=== PATIENT | male | born 1950 | race Caucasian/White ===

== ENCOUNTER 2017-10-30 14:19 | Inpatient (IN) | payer OTHER ==
[~2017-10-30] VITALS: Ht 170.2 cm; Wt 123.8 kg
[2017-10-30] MEDS ORDERED: SODIUM CHLORIDE 0.9% 500ML 500 ML IV STA (14:38)
[2017-10-30] MEDS ORDERED: ONDANSETRON INJ 2 MG/ML 2 ML VIAL IV STA ×2 (14:38→16:40)
--- NOTE | 2017-10-30 14:38 | EMERGENCY ROOM VISIT NOTE ---
History Report prepared by Ayush: Dread Baca Under the Supervision of: Dr. Lor Meza D.O. First contact with patient: 14:20 Chief Complaint: CARDIAC ASSESSMENT Stated Complaint: NAUSEA/WEAKNESS History of Present Illness The patient is a 67 year old male who presents to the Emergency Room with complaints of constant nausea beginning this morning. The patient states that he has not felt well for the entire day today due to his nerves. He notes that he went to the [facility] vein clinic and became nauseous as he had an US on his legs done to check blood flow as he has chronic leg wounds that are slow to heal. He reports that he only had Cheerios for breakfast this morning and he states that he has not eaten much since. He also complains of some mild SOB, dizziness, and a bad taste in his mouth. He denies any vomiting, chest pain, fever, chills, cough, and other pain. Per EMS, the patient has been having uncontrolled afib between 90-150. EMS notes that the patient's blood sugar was 288 which is high for the patient. EMS reports that the patient's oxygen saturation has been 94% on room air. EMS states that the patient was given four of Zofran en route to the emergency department. The patient notes that he had black stools five weeks ago. He reports that he had black stools for a week and he states that he is currently having brown stools. He notes that he has not had any alcohol in weeks. He reports that he has a previous history of afib that required cardioversion, as well as a heart murmur. He states that he has had two previous cardiac catheterizations but did not have any stents placed. He notes that he takes Pradaxa and metoprolol. Source of History: patient, EMS Onset: this morning Position: abdomen Quality: other (nausea) Timing: constant Associated Symptoms: + SOB, No fevers, No chills, No cough, No chest pain, No vomiting, No melena Note: The patient also complains of dizziness and a bad taste in his mouth. He denies any other pain. Review of Systems See HPI for pertinent positives & negatives. A total of 10 systems reviewed and were otherwise negative. Past Medical & Surgical Medical Problems: (1) A-fib (2) Afib (3) Murmur Family History No pertinent family history stated. Social History Alcohol Use: none Marital Status: single Occupation Status: employed Current/Historical Medications Scheduled Allopurinol (Zyloprim), 100 MG PO DAILY Bupropion (Wellbutrin Sr), 150 MG PO BID Canagliflozin-Metformin HCl (Invokamet 150-500 mg), 1 TAB PO BID Dabigatran Etexilate Mesylate (Pradaxa), 150 MG PO BID Furosemide (Lasix), 40 MG PO DAILY Gemfibrozil (Lopid), 600 MG PO BID Glimepiride (Glimepiride), 4 MG PO DAILY Hctz/Losartan (Hyzaar 12.5MG/50MG), 1 TAB PO DAILY Levothyroxine Sodium (Levothyroxine Sodium), 50 MCG PO DAILY Magnesium Oxide (Mag-Ox), 400 MG PO BID Metoprolol Tartrate (Lopressor) (Lopressor), 25 MG PO BID Multivitamin (Multivitamin), 1 TAB PO DAILY Sitagliptin Phosphate (Januvia), 100 MG PO DAILY Scheduled PRN Indomethacin (Indocin), 50 MG PO PRN PRN for Pain Allergies Coded Allergies: No Known Allergies (Unverified , 10/30/17) Physical Exam Vital Signs Date Time Temp Pulse Resp B/P (MAP) Pulse Ox O2 Delivery O2 Flow Rate FiO2 10/30/17 17:10 137 10/30/17 17:07 128 20 116/73 94 Room Air 10/30/17 16:34 120 22 124/95 96 Room Air 10/30/17 16:14 113 22 107/79 95 Room Air 10/30/17 15:54 119 119/97 10/30/17 15:52 119 26 119/97 96 Room Air 10/30/17 15:17 104 16 114/76 95 Room Air 10/30/17 14:49 124 121/73 10/30/17 14:32 124 10/30/17 14:26 37.8 124 18 121/73 95 Room Air 10/30/17 14:26 95 Room Air 10/30/17 14:26 95 Room Air Physical Exam GENERAL: alert, well appearing, well nourished, no distress, non-toxic, obese. EYE EXAM: normal conjunctiva, PERRL and EOM's grossly intact OROPHARYNX: no exudate, no erythema, lips, buccal mucosa, and tongue normal and mucous membranes are moist NECK: supple, no nuchal rigidity, no adenopathy, non-tender LUNGS: Clear to auscultation. Normal chest wall mechanics. Breath sounds diminished, no wheezes, rhonchi, and rales. HEART: no murmurs, S1 normal and S2 normal, fast and irregular. ABDOMEN: abdomen soft, non-tender, normo-active bowel sounds, no masses, no rebound or guarding. BACK: Back is symmetrical on inspection and there is no deformity, no midline tenderness, no CVA tenderness. SKIN: no rashes and no bruising UPPER EXTREMITIES: upper extremities are grossly normal. LOWER EXTREMITIES: No pitting edema. NEURO EXAM: Normal sensorium, cranial nerves II-XII grossly intact, normal speech, no gross weakness of arms, no gross weakness of legs. Medical Decision & Procedures ER Provider Diagnostic Interpretation: Radiology results have been interpreted by the radiologist and reviewed by me. ABDOMEN 2VIEW W/PA CHEST RTN FINDINGS: The soft tissues, psoas shadows, renal outlines and intestinal gas pattern appear normal. There is no evidence for bowel obstruction. There is no evidence for free intraperitoneal air. No abnormal abdominal calcifications are seen. A frontal view of the chest was performed and is unremarkable. Mild cardiomegaly. Mild nonobstructive ileus. IMPRESSION: Mild cardiomegaly. Mild nonobstructive ileus. The above report was generated using voice recognition software. It may contain grammatical, syntax or spelling errors. Electronically signed by: Khurram Bonilla M.D. 10/30/2017 3:49 PM Dictated Date/Time: 10/30/2017 3:47 PM [address] AND PELVIS CT WITH IV CONTRAST FINDINGS: Motion degraded exam. Lung bases are generally clear. No pneumatosis or pneumoperitoneum. Imaged inferior cardiac chambers are moderately enlarged. Mitral annular calcifications noted. Prior cholecystectomy. Liver is mildly enlarged. No focal hepatic mass lesions or intrahepatic biliary ductal dilation. The spleen, pancreas and right adrenal gland are unremarkable. 9 mm fatty attenuating lesion about the left adrenal gland compatible with adrenal myolipoma. There are several nonenlarged periaortic lymph nodes which are likely physiologic. Patent portal vein. Moderate calcification of the aorta without aneurysm. IVC is unremarkable. Kidneys, ureters and bladder are unremarkable. Prostate is mildly enlarged. Calcifications of the vas deferens. No bowel obstruction. There are a few nondilated fluid-filled loops of small bowel within the central abdomen with air-fluid levels. There is moderate volume of formed stool throughout the sigmoid. 1.5 cm fatty attenuating focus of the hepatic flexure suggests submucosal lipoma, image 201 series 3. The appendix appears normal within the abdominal right lower quadrant. There is no ascites or mesenteric inflammatory changes identified. Soft tissues are unremarkable. Bones appear intact. Multilevel facet arthropathy with annular disc bulging without the lumbar spine. Grade 1 anterolisthesis L4 on L5, likely secondary to advanced facet arthrosis. IMPRESSION: 1. No bowel obstruction or focal bowel wall thickening. There are however a few loops of nondilated fluid-filled small bowel with air-fluid levels which may be physiologic or reflect ileus or enteritis. 2. Prior cholecystectomy. 3. Cardiomegaly. 4. Additional findings as above. Electronically signed by: Rudy Max M.D. 10/30/2017 5:51 PM Dictated Date/Time: 10/30/2017 5:42 PM Laboratory Results 10/30/17 14:29 Red Blood Count 5.91, Mean Corpuscular Volume 87.5, Mean Corpuscular Hemoglobin 29.9, Mean Corpuscular Hemoglobin Concent 34.2, Mean Platelet Volume 12.6, Neutrophils (%) (Auto) 89.9, Lymphocytes (%) (Auto) 4.0, Monocytes (%) (Auto) 5.1, Eosinophils (%) (Auto) 0.3, Basophils (%) (Auto) 0.2, Neutrophils # (Auto) 15.75, Lymphocytes # (Auto) 0.70, Monocytes # (Auto) 0.90, Eosinophils # (Auto) 0.05, Basophils # (Auto) 0.03 10/30/17 14:29 Test 10/30/17 14:29 10/30/17 17:03 White Blood Count 17.51 K/uL (4.8-10.8) Red Blood Count 5.91 M/uL (4.7-6.1) Hemoglobin 17.7 g/dL (14.0-18.0) Hematocrit 51.7 % (42-52) Mean Corpuscular Volume 87.5 fL (80-100) Mean Corpuscular Hemoglobin 29.9 pg (25-34) Mean Corpuscular Hemoglobin Concent 34.2 g/dl (32-36) Platelet Count 140 K/uL (130-400) Mean Platelet Volume 12.6 fL (7.4-10.4) Neutrophils (%) (Auto) 89.9 % Lymphocytes (%) (Auto) 4.0 % Monocytes (%) (Auto) 5.1 % Eosinophils (%) (Auto) 0.3 % Basophils (%) (Auto) 0.2 % Neutrophils # (Auto) 15.75 K/uL (1.4-6.5) Lymphocytes # (Auto) 0.70 K/uL (1.2-3.4) Monocytes # (Auto) 0.90 K/uL (0.11-0.59) Eosinophils # (Auto) 0.05 K/uL (0-0.5) Basophils # (Auto) 0.03 K/uL (0-0.2) RDW Standard Deviation 49.9 fL (36.4-46.3) RDW Coefficient of Variation 15.8 % (11.5-14.5) Immature Granulocyte % (Auto) 0.5 % Immature Granulocyte # (Auto) 0.08 K/uL (0.00-0.02) Prothrombin Time 14.2 SECONDS (9.0-12.0) Prothromb Time International Ratio 1.4 (0.9-1.1) Anion Gap 12.0 mmol/L (3-11) BUN/Creatinine Ratio 24.1 (10-20) Calcium Level 9.5 mg/dl (8.5-10.1) Magnesium Level 2.1 mg/dl (1.8-2.4) Total Bilirubin 0.9 mg/dl (0.2-1) Aspartate Amino Transf (AST/SGOT) 53 U/L (15-37) Alanine Aminotransferase (ALT/SGPT) 37 U/L (12-78) Alkaline Phosphatase 59 U/L (45-117) Pro-B-Type Natriuretic Peptide 2131 pg/ml (0-900) Total Protein 8.9 gm/dl (6.4-8.2) Albumin 3.9 gm/dl (3.4-5.0) Globulin 5.0 gm/dl (2.5-4.0) Albumin/Globulin Ratio 0.8 (0.9-2) Lipase 341 U/L (73-393) Thyroid Stimulating Hormone (TSH) 0.880 uIu/ml (0.300-4.500) Urine Color YELLOW Urine Appearance CLEAR (CLEAR) Urine pH 5.0 (4.5-7.5) Urine Specific [place] 1.032 (1.000-1.030) Urine Protein 1+ (NEG) Urine Glucose (UA) 3+ (NEG) Urine Ketones NEG (NEG) Urine Occult Blood NEG (NEG) Urine Nitrite NEG (NEG) Urine Bilirubin NEG (NEG) Urine Urobilinogen NEG (NEG) Urine Leukocyte Esterase NEG (NEG) Urine WBC (Auto) 0 /hpf (0-5) Urine RBC (Auto) 0-4 /hpf (0-4) Urine Hyaline Casts (Auto) 0 /lpf (0-5) Urine Epithelial Cells (Auto) 0-5 /lpf (0-5) Urine Bacteria (Auto) NEG (NEG) Laboratory results per my review. Medications Administered Medications (Trade) Dose Ordered Sig/Mamie Route Start Time Stop Time Status Last Admin Dose Admin Sodium Chloride 500 ml @ 999 mls/hr Q31M STAT IV 10/30/17 14:38 10/30/17 15:08 DC 10/30/17 14:51 999 MLS/HR Ondansetron HCl (Zofran Inj) 4 mg NOW STAT IV 10/30/17 14:38 10/30/17 14:40 DC 10/30/17 14:52 4 MG Metoprolol Tartrate (Lopressor Iv) 5 mg NOW STAT IV 10/30/17 14:40 10/30/17 14:41 DC 10/30/17 14:49 5 MG Metoprolol Tartrate (Lopressor Iv) 5 mg NOW STAT IV 10/30/17 15:37 10/30/17 15:38 DC 10/30/17 15:54 5 MG Sodium Chloride 1,000 ml @ 125 mls/hr Q8H STAT IV 10/30/17 16:37 10/30/17 18:22 DC 10/30/17 17:02 125 MLS/HR Ondansetron HCl (Zofran Inj) 4 mg NOW STAT IV 10/30/17 16:40 10/30/17 16:42 DC 10/30/17 17:02 4 MG Diltiazem HCl 125 mg/Dextrose 125 ml @ 0 mls/hr Q0M PRN IV 10/30/17 16:45 10/31/17 11:50 DC 10/31/17 00:32 10 MLS/HR Insulin Human Regular (novoLIN-R U-100 PER UNIT) 6 units NOW STAT SC 10/30/17 16:56 10/30/17 16:57 DC 10/30/17 17:04 6 UNITS ECG Per My Interpretation Indication: nausea Rate (beats per minute): 124 Rhythm: atrial fibrillation Findings: no acute ischemic change, other (Frequent PVCs, normal axis, normal QRS and QTC, Q waves in V2) ED Course 1421: The patient was evaluated in room A3. A complete history and physical exam was performed. 1438: Zofran Inj 4mg IV, Sodium Chloride 500 ml @ 999 mls/hr IV 1440: Metoprolol Tartrate 5mg IV 1511: I reevaluated and updated the patient. His heart rate is slower in the 110s. He states that he has not noticed any significant differences in his symptoms. 1537: Metoprolol Tartrate 5mg IV 1615: I rechecked the patient. He still looks the same and he notes that he does not feel better. His heart rate is the same. 1623: I reviewed records from [place]. Per [place] records, the patient had a cardiac cath in October,. The records also show that the patient had normal coronary arteries, moderate-severe aortic stenosis, mild pulmonary hypertension , and a TTE done at that time. The patient had an LVF of 15-55% and moderate LV wall thickness. 1640: Zofran Inj 4mg IV 1642: I reevaluated and updated the patient. 1656: Insulin Human Regular 6 units SC 1704: Upon reevaluation, the patient is stable. I discussed the findings and the treatment plan with the patient. He expresses agreement and understanding. I spoke with Rachael PAZ of the [facility]. She will be evaluated for further management. Medical Decision Differential diagnosis: Etiologies such as gastroenteritis, food borne illness, infections, appendicitis , diverticulitis, inflammatory bowel disease, obstruction, GI bleed, biliary pathology, as well as others were entertained. Patient with atypical presentation and found to be in rapid A. fib. Patient with prior history of A. fib and takes metoprolol and Pradaxa. Patient denies any recent changes. Denied any recent sick contacts, medication change, or dietary change otherwise explain acute nausea experience today which prompted the call 911 and transportation emergency room. Patient's nausea was slightly improved with Zofran and fluids, did not seem to improve at all with rate control. Patient initially given IV metoprolol given that he uses metoprolol orally daily. This would help with rate control but he would then escalate again. Patient then changed to diltiazem drip. Patient's labs otherwise reassuring. Leukocytosis thought initially to be secondary to stress reaction. Patient never had any abdominal pain, states bowel movements over the last week have been normal. As a precaution given the persistence of nausea patient sent for CAT scan which was also reassuring and only suggestive of possible mild ileus. Patient states his leg wounds are chronic and are slow to heal however have not been getting significantly worse. Denies any fevers or chills. Discussed with patient admission for additional evaluation, better control of his heart rate, and additional medication for his nausea, patient was in agreement with this. Patient aware of all results. Records were obtained from [place] from a cardiac catheterization as well as echo in 2013 which were reviewed and placed on his chart. Case discussed with hospitalist for additional evaluation and management. I do not suspect bacteremia/sepsis, dissection. Prior echo was suggestive of moderate aortic stenosis which I discussed with patient might require a repeat echo for further evaluation as this could contribute to shortness of breath. Patient seemed mildly short of breath here with exertion. No evidence of pneumonia, acute congestive heart failure. Despite elevated troponin I do not suspect ACS. I feel more likely this is secondary to the rapid rate associated with the atrial fibrillation. Patient's EKG reassuring other than atrial fibrillation which is chronic. Medication Reconcilliation Current Medication List: was personally reviewed by me Blood Pressure Screening Patient's blood pressure: Normal blood pressure Blood pressure disposition: Did not require urgent referral Consults Time Called: 1648 Consulting Physician: Rachael PAZ, [facility] Returned Call: 1700 I reviewed the patient's case with Rachael Garcia. She will evaluate the patient for further management. Impression Primary Impression: Atrial fibrillation with rapid ventricular response Additional Impressions: Nausea Ileus Critical Care I have personally spent greater than 45 minutes of critical care time in the direct management of this patient. This includes bedside care, interpretation of diagnostic studies, and testing, discussion with consultants, patient, and family members, and other required patient management activities. This 45 minutes is in excess of all separately billable procedures. Scribe Attestation The scribe's documentation has been prepared under my direction and personally reviewed by me in its entirety. I confirm that the note above accurately reflects all work, treatment, procedures, and medical decision making performed by me. Departure Information Dispostion Being Evaluated By Hospitalist Patient Instructions My [facility] Problem Qualifiers
[2017-10-30] MEDS ORDERED: METOPROLOL TARTRATE 1 MG/ML VIAL IV STA ×2 (14:40→15:37)
[2017-10-30] MEDS ORDERED: CANA1TAB7 PO (15:14)
[2017-10-30] MEDS ORDERED: LEVO50TA6 PO (15:14)
[2017-10-30] MEDS ORDERED: SITA100T3 PO (15:14)
[2017-10-30] MEDS ORDERED: DABI150C PO (15:14)
[2017-10-30] MEDS ORDERED: HYZ/50125 PO (15:14)
[2017-10-30] MEDS ORDERED: MAGN400T6 PO (15:14)
[2017-10-30] MEDS ORDERED: METO25TA56 PO (15:14)
[2017-10-30] MEDS ORDERED: GEMF600T5 PO (15:14)
[2017-10-30] MEDS ORDERED: INDO-24 PO (15:14)
[2017-10-30] MEDS ORDERED: BUPR-79 PO (15:14)
[2017-10-30] MEDS ORDERED: ALLO100T PO (15:14)
[2017-10-30] MEDS ORDERED: FRS/40 PO (15:14)
[2017-10-30] MEDS ORDERED: MULT-506 PO (15:14)
[2017-10-30] MEDS ORDERED: GLIM4TAB2 PO (15:14)
[2017-10-30 15:21] LABS: BASO % 0.2 %; BASO ABS # 0.03 K/uL (0-0.2); EOS % 0.3 %; EOS ABS # 0.05 K/uL (0-0.5); HEMATOCRIT 51.7 % (42-52); HEMOGLOBIN 17.7 g/dL (14.0-18.0); IG# 0.08 K/uL (0.00-0.02); MEAN CELL VOLUME 87.5 fL (80-100); MEAN CORPUSCULAR HEMOGLOBIN 29.9 pg (25-34); MEAN CORPUSCULAR HGB CONC 34.2 g/dl (32-36); MEAN PLATELET VOLUME 12.6 fL (7.4-10.4); MONO % 5.1 %; NEUT % 89.9 %; NEUT ABS # 15.75 K/uL (1.4-6.5); PLATELET COUNT 140 K/uL (130-400); RED CELL DISTRIBUTION WIDTH CV 15.8 % (11.5-14.5); RED CELL DISTRIBUTION WIDTH SD 49.9 fL (36.4-46.3); WHITE BLOOD COUNT 17.51 K/uL (4.8-10.8)
[2017-10-30 15:29] LABS: INR 1.4 (0.9-1.1)
--- NOTE | 2017-10-30 15:50 | DIAGNOSTIC IMAGING REPORT ---
ABDOMEN 2VIEW W/PA CHEST RTN CLINICAL HISTORY: nausea, sob nausea COMPARISON STUDY: No previous studies for comparison. FINDINGS: The soft tissues, psoas shadows, renal outlines and intestinal gas pattern appear normal. There is no evidence for bowel obstruction. There is no evidence for free intraperitoneal air. No abnormal abdominal calcifications are seen. A frontal view of the chest was performed and is unremarkable. Mild cardiomegaly. Mild nonobstructive ileus. IMPRESSION: Mild cardiomegaly. Mild nonobstructive ileus. The above report was generated using voice recognition software. It may contain grammatical, syntax or spelling errors. Electronically signed by: Khurram Bonilla M.D. 10/30/2017 3:49 PM Dictated Date/Time: 10/30/2017 3:47 PM
[2017-10-30 15:52] LABS: ALBUMIN 3.9 gm/dl (3.4-5.0); CALCIUM 9.5 mg/dl (8.5-10.1); CREATININE 1.16 mg/dl (0.60-1.40); POTASSIUM 3.9 mmol/L (3.5-5.1); TOTAL PROTEIN 8.9 gm/dl (6.4-8.2)
[2017-10-30] MEDS ORDERED: DILTIAZEM BOLUS / DRIP IV STA ×2 (16:37→18:26)
[2017-10-30] MEDS ORDERED: SODIUM CHLORIDE 0.9% 1000ML 1,000 ML IV STA (16:37)
[2017-10-30] MEDS ORDERED: NovoLIN-R INSULIN PER UNIT CHARGE SC STA (16:56)
[2017-10-30] MEDS: DILTIAZEM HCL INJ 125 MG in DEXTROSE 5% 100ML IV PRN ×3 (17:07→18:39)
[2017-10-30] MEDS ORDERED: OPTIRAY 320 IV PRN (17:15)
--- NOTE | 2017-10-30 17:52 | DIAGNOSTIC IMAGING REPORT ---
ABDOMEN AND PELVIS CT WITH IV CONTRAST CT DOSE: 1446.92 mGy.cm HISTORY: Acute nausea with ileus nausea, ?ileus on xray TECHNIQUE: Multiaxial CT images of the abdomen and pelvis were performed following the use of intravenous contrast. A dose lowering technique was utilized adhering to the principles of ALARA. COMPARISON STUDY: Acute abdominal series radiographs of same day. FINDINGS: Motion degraded exam. Lung bases are generally clear. No pneumatosis or pneumoperitoneum. Imaged inferior cardiac chambers are moderately enlarged. Mitral annular calcifications noted. Prior cholecystectomy. Liver is mildly enlarged. No focal hepatic mass lesions or intrahepatic biliary ductal dilation. The spleen, pancreas and right adrenal gland are unremarkable. 9 mm fatty attenuating lesion about the left adrenal gland compatible with adrenal myolipoma. There are several nonenlarged periaortic lymph nodes which are likely physiologic. Patent portal vein. Moderate calcification of the aorta without aneurysm. IVC is unremarkable. Kidneys, ureters and bladder are unremarkable. Prostate is mildly enlarged. Calcifications of the vas deferens. No bowel obstruction. There are a few nondilated fluid-filled loops of small bowel within the central abdomen with air-fluid levels. There is moderate volume of formed stool throughout the sigmoid. 1.5 cm fatty attenuating focus of the hepatic flexure suggests submucosal lipoma, image 201 series 3. The appendix appears normal within the abdominal right lower quadrant. There is no ascites or mesenteric inflammatory changes identified. Soft tissues are unremarkable. Bones appear intact. Multilevel facet arthropathy with annular disc bulging without the lumbar spine. Grade 1 anterolisthesis L4 on L5, likely secondary to advanced facet arthrosis. IMPRESSION: 1. No bowel obstruction or focal bowel wall thickening. There are however a few loops of nondilated fluid-filled small bowel with air-fluid levels which may be physiologic or reflect ileus or enteritis. 2. Prior cholecystectomy. 3. Cardiomegaly. 4. Additional findings as above. Electronically signed by: Rudy Max M.D. 10/30/2017 5:51 PM Dictated Date/Time: 10/30/2017 5:42 PM
[2017-10-30 18:27] VITALS: BP 113/70; PULSE 116; TEMP 37.1; BMI 43.7
[2017-10-30] MEDS ORDERED: DEXTROSE 50% 50 ML SYR IV PRN (18:30)
[2017-10-30] MEDS ORDERED: GLUCAGON FOR INJ 1 MG VIAL SQ PRN (18:30)
[2017-10-30] MEDS ORDERED: GLUCOSE 40% GEL 15 GM TUBE PO PRN (18:30)
[2017-10-30] MEDS ORDERED: ONDANSETRON INJ 2 MG/ML 2 ML VIAL IV PRN (18:30)
[2017-10-30] MEDS ORDERED: GLUCOSE 10 TABS/TUBE PO PRN (18:30)
[2017-10-30] MEDS ORDERED: CARBOHYDRATES FOR HYPOGLYCEMIA PO PRN (18:30)
[2017-10-30] MEDS ORDERED: CONSULT PHARMACY STA (19:04)
[2017-10-30] MEDS ORDERED: PHARMACY GLYCEMIC MGMT CONSULT PRN (19:06)
[2017-10-30 19:24] VITALS: BP 120/75; PULSE 112; TEMP 37.4; TEMP 37.5; O2SAT 92
[2017-10-30] MEDS ORDERED: VANCOMYCIN IV 2,500 MG in SODIUM CHLORIDE 0.9% 500ML 500 ML IV ONE (19:30)
[2017-10-30] MEDS ORDERED: D5NSS + 20MEQ KCL 1,000 ML IV SCH (19:30)
[2017-10-30] MEDS ORDERED: PIPERACILL/TAZOBAC IV 4.5 GM in D5W 100 ML IV ONE (19:30)
[2017-10-30] MEDS ORDERED: VANCOMYCIN CONSULT ACTIVE PRN (19:45)
[2017-10-30] MEDS ORDERED: PIPERACILL/TAZOBAC CONSULT ACTIVE PRN (19:45)
--- NOTE | 2017-10-30 19:53 | DIAGNOSTIC IMAGING REPORT ---
L TIBIA/FIBULA 2 VIEWS ROUTINE HISTORY: 67 years-old Male R/O OSTEOMYELITIS acute pain and swelling of the left lower leg COMPARISON: None available TECHNIQUE: 2 views of the left tibia and fibula. FINDINGS: Mild degenerative changes about the knee and ankle. No acute fracture, dislocation or erosive changes. Mild soft tissue swelling about the lower leg and ankle. Extensive peripheral arterial calcifications are noted. IMPRESSION: Soft tissue swelling without acute bony abnormality. The above report was generated using voice recognition software. It may contain grammatical, syntax or spelling errors. Electronically signed by: Rudy Max M.D. 10/30/2017 7:52 PM Dictated Date/Time: 10/30/2017 7:50 PM
--- NOTE | 2017-10-30 20:01 | Pharmacy Progress Note ---
Pharmacy Antibiotic Consult Date of Service: Oct 30, 2017. Pharmacy Dosing Scope Pharmacy is consulted to initiate vancomycin/zosyn IV dosing therapy, order appropriate labs and adjust drug dose/frequency. Subjective The patient is a 67 year old male admitted on Oct 30, 2017 at 17:31. Objective Height (Feet): 5 Height (Inches): 10.00 Weight (Kilograms): 130.500 Lab Results (24hrs): Test 10/30/17 14:29 10/30/17 17:03 10/30/17 19:26 White Blood Count 17.51 K/uL (4.8-10.8) Red Blood Count 5.91 M/uL (4.7-6.1) Hemoglobin 17.7 g/dL (14.0-18.0) Hematocrit 51.7 % (42-52) Mean Corpuscular Volume 87.5 fL (80-100) Mean Corpuscular Hemoglobin 29.9 pg (25-34) Mean Corpuscular Hemoglobin Concent 34.2 g/dl (32-36) Platelet Count 140 K/uL (130-400) Mean Platelet Volume 12.6 fL (7.4-10.4) Neutrophils (%) (Auto) 89.9 % Lymphocytes (%) (Auto) 4.0 % Monocytes (%) (Auto) 5.1 % Eosinophils (%) (Auto) 0.3 % Basophils (%) (Auto) 0.2 % Neutrophils # (Auto) 15.75 K/uL (1.4-6.5) Lymphocytes # (Auto) 0.70 K/uL (1.2-3.4) Monocytes # (Auto) 0.90 K/uL (0.11-0.59) Eosinophils # (Auto) 0.05 K/uL (0-0.5) Basophils # (Auto) 0.03 K/uL (0-0.2) RDW Standard Deviation 49.9 fL (36.4-46.3) RDW Coefficient of Variation 15.8 % (11.5-14.5) Immature Granulocyte % (Auto) 0.5 % Immature Granulocyte # (Auto) 0.08 K/uL (0.00-0.02) Prothrombin Time 14.2 SECONDS (9.0-12.0) Prothromb Time International Ratio 1.4 (0.9-1.1) Sodium Level 130 mmol/L (136-145) Potassium Level 3.9 mmol/L (3.5-5.1) Chloride Level 97 mmol/L (98-107) Carbon Dioxide Level 21 mmol/L (21-32) Anion Gap 12.0 mmol/L (3-11) Blood Urea Nitrogen 28 mg/dl (7-18) Creatinine 1.16 mg/dl (0.60-1.40) Est Creatinine Clear Calc Drug Dose 82.8 ml/min Estimated GFR () 74.6 Estimated GFR (Non- 64.3 BUN/Creatinine Ratio 24.1 (10-20) Random Glucose 226 mg/dl (70-99) Calcium Level 9.5 mg/dl (8.5-10.1) Magnesium Level 2.1 mg/dl (1.8-2.4) Total Bilirubin 0.9 mg/dl (0.2-1) Aspartate Amino Transf (AST/SGOT) 53 U/L (15-37) Alanine Aminotransferase (ALT/SGPT) 37 U/L (12-78) Alkaline Phosphatase 59 U/L (45-117) Troponin I 0.078 ng/ml (0-0.045) Pro-B-Type Natriuretic Peptide 2131 pg/ml (0-900) Total Protein 8.9 gm/dl (6.4-8.2) Albumin 3.9 gm/dl (3.4-5.0) Globulin 5.0 gm/dl (2.5-4.0) Albumin/Globulin Ratio 0.8 (0.9-2) Lipase 341 U/L (73-393) Thyroid Stimulating Hormone (TSH) 0.880 uIu/ml (0.300-4.500) Urine Color YELLOW Urine Appearance CLEAR (CLEAR) Urine pH 5.0 (4.5-7.5) Urine Specific [place] 1.032 (1.000-1.030) Urine Protein 1+ (NEG) Urine Glucose (UA) 3+ (NEG) Urine Ketones NEG (NEG) Urine Occult Blood NEG (NEG) Urine Nitrite NEG (NEG) Urine Bilirubin NEG (NEG) Urine Urobilinogen NEG (NEG) Urine Leukocyte Esterase NEG (NEG) Urine WBC (Auto) 0 /hpf (0-5) Urine RBC (Auto) 0-4 /hpf (0-4) Urine Hyaline Casts (Auto) 0 /lpf (0-5) Urine Epithelial Cells (Auto) 0-5 /lpf (0-5) Urine Bacteria (Auto) NEG (NEG) Micro Results: Date/Time Source Procedure Growth Status 10/30/17 19:26 Blood Blood Culture Pending Received 10/30/17 19:26 Blood Blood Culture Pending Received Assessment & Plan Assessment: 67 yo male admitted with A. Fib w/ RVR Febrile on admission (37.8), WBC elevated (17.8) Starting vancomycin/zosyn for leg cellulitis. Plan: Loading dose: 2500 mg (20 mg/kg) IV X 1 dose then: 1500 mg (12 mg/kg) IV every 12 hours. Population PK: Estimated CrCl 77, T1/2 ~10 hours, Vdf 0.6 Used less than traditional 15 mg/kg, patients BMI >35, risk for accumulation Goal trough level estimate: between 10-20 mcg/mL. Trough ordered for 11/01 @1930 Pharmacy will continue to follow and will adjust dose/frequency as necessary. Thank you
[2017-10-30] MEDS ORDERED: INSULIN GLARGINE SOLOSTAR 100 UNITS/ML 3 ML PEN SC SCH (21:00)
--- NOTE | 2017-10-30 21:37 | DIAGNOSTIC IMAGING REPORT ---
ART DOP LOWER EXT BILAT HISTORY: 67 years-old Male R/O PERIPHERAL VASCULAR DISEASE acute pain of the lower legs with peripheral arterial disease COMPARISON: Left tibia and fibula radiographs of same day TECHNIQUE: Multiple real-time sonographic images of the bilateral lower extremity arterial structures were obtained assessing grayscale appearance, color and spectral flow FINDINGS: RIGHT: Patent triphasic waveforms noted within the common femoral, profunda femoris, superficial femoral and popliteal arteries. Blunted biphasic waveforms within the posterior tibial artery. The mid right peroneal artery is not visualized. Severely blunted monophasic waveforms within the distal peroneal artery. Biphasic waveforms are seen within the anterior tibial and dorsalis pedis artery with areas of blunted monophasic waveforms within the mid and distal anterior tibial artery. No significantly elevated peak systolic velocities. LEFT: Patent triphasic waveforms within the common femoral artery. Blunted monophasic waveforms within the profunda femoris artery. Triphasic waveforms within the superficial femoral and popliteal arteries. Mildly blunted biphasic waveforms within the posterior tibial artery with biphasic waveforms seen within the dorsalis pedis and proximal anterior tibial artery. Monophasic waveforms within the mid and distal anterior tibial artery. Left peroneal artery is not diagnostically visualized. No significantly elevated peak systolic velocities. IMPRESSION: 1. Patent triphasic waveforms are seen within the upper legs bilaterally. 2. Areas of monophasic and biphasic waveforms of the bilateral lower legs as above suggests underlying peripheral arterial disease. 3. No significantly elevated peak systolic velocities identified to suggest high-grade stenosis. 4. Severely blunted monophasic waveforms within the right distal peroneal artery with the mid right peroneal and entire left peroneal artery not diagnostically visualized. The above report was generated using voice recognition software. It may contain grammatical, syntax or spelling errors. Electronically signed by: Rudy Max M.D. 10/30/2017 9:35 PM Dictated Date/Time: 10/30/2017 9:27 PM
[2017-10-30] MEDS: MAGNESIUM OXIDE 400 MG TAB PO SCH (21:39)
[2017-10-30] MEDS: DABIGATRAN ELEXILATE 75 MG CAP PO SCH (21:40)
[2017-10-30] MEDS: BuPROPion SR 150 MG TABCR PO SCH (21:40)
[2017-10-30] MEDS: GEMFIBROZIL 600 MG TAB PO SCH (21:40)
[2017-10-30] MEDS: METOPROLOL TARTRATE 25 MG TAB PO SCH (21:41)
[2017-10-30 21:43] VITALS: BP 110/73; PULSE 102
[2017-10-30 23:35] VITALS: BP 104/71; PULSE 100; TEMP 37.2; O2SAT 93
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
[2017-10-31] MEDS: INSULIN ASPART 100 UNITS/ML 3 ML PEN SC SCH ×3 (00:31→11:52)
[2017-10-31] MEDS: DILTIAZEM HCL INJ 125 MG in DEXTROSE 5% 100ML IV PRN (00:32)
[2017-10-31] MEDS: PIPERACILL/TAZOBAC IV 4.5 GM in D5W 100 ML IV SCH ×2 (02:24→10:22)
[2017-10-31 03:28] LABS: CREATININE 1.22 mg/dl (0.60-1.40)
[2017-10-31 03:35] VITALS: BP 111/68; PULSE 92; TEMP 37.1; O2SAT 94
[2017-10-31] MEDS: LEVOTHYROXINE 50 MCG TAB PO SCH (05:52)
[2017-10-31] MEDS ORDERED: VANCOMYCIN IV 1,500 MG in SODIUM CHLORIDE 0.9% 500ML 500 ML IV SCH (06:00)
[2017-10-31 06:55] LABS: HEMOGLOBIN A1C 8.9 % (4.5-5.6)
[2017-10-31] MEDS ORDERED: PERFLUTREN LIPID MICROSPHERE (DEFINITY) IV ONE (07:23)
[2017-10-31] MEDS: GEMFIBROZIL 600 MG TAB PO SCH ×2 (08:20→20:12)
[2017-10-31] MEDS: BuPROPion SR 150 MG TABCR PO SCH ×2 (08:20→20:11)
[2017-10-31] MEDS: ALLOPURINOL 100 MG TAB PO SCH (08:20)
[2017-10-31] MEDS: DABIGATRAN ELEXILATE 75 MG CAP PO SCH ×2 (08:21→20:10)
[2017-10-31] MEDS: MAGNESIUM OXIDE 400 MG TAB PO SCH ×2 (08:21→20:11)
[2017-10-31] MEDS: METOPROLOL TARTRATE 25 MG TAB PO SCH ×2 (08:21→20:11)
--- NOTE | 2017-10-31 08:58 | ECHOCARDIOGRAM REPORT ---
*NOTICE TO RECEIVING [employer] AGENCY This information is strictly Confidential and protected under [place] law. [place] law prohibits you from making any further disclosure of this information unless further disclosure is expressly permitted by the written consent of the person to whom it pertains or is authorized by law. A general authorization for the release of medical or other information is not sufficient for this purpose. Hospital accepts no responsibility if the information is made available to any other person, INCLUDING THE PATIENT. Interpretation Summary * Name: STANLEY LI Study Date: 10/31/2017 06:41 AM BP: 111/68 mmHg * Patient Location: S230 HR: 82 * : 1950 (M/d/yyyy) Gender: Male Height: 70 in * Age: 67 yrs Ethnicity: [place] Weight: 275 lb * Ordering Physician: Aung Gambino * Referring Physician: Self, Referred * Performed By: Madison Spicer RCS * * Reason For Study: A-FIB WITH RVR * BSA: 2.4 m2 * -- Conclusions -- * The study was technically adequate for the referral indication. * Atrial fibrillation with controlled ventricular rate in the range of 85-90 bpm was present during the echocardiogram. * There is moderate concentric left ventricular hypertrophy. * There is borderline global hypokinesis of the left ventricle. * Left ventricular systolic function is low normal. * The left ventricular ejection Fraction = 50-55%. * Right ventricular chamber size and systolic function are grossly normal on technically limited imaging. * The aortic valve is severely calcified. * Images are insufficient to distinguish if this is a trileaflet aortic valve or bicuspid morphology, * Critically severe aortic valve stenosis is present. * The peak continuous wave Doppler velocity across aortic valve is 5 m/s. * The mean calculated gradient across aortic valve is 53 mmHg. * The aortic valve area is calculated by the continuity equation is 0.4 cm2 * Trace aortic regurgitation. * There is mild mitral annular calcification. * There is mild mitral regurgitation. * Doppler findings do not suggest pulmonary hypertension. * Aortic root diameter is normal. * The proximal ascending thoracic aorta is not visualized well enough to allow measurement. Procedure Details * A complete two-dimensional transthoracic echocardiogram was performed (2D, M-mode, Doppler and color flow Doppler). * The study was technically difficult. * There were technical limitations due to patient'spoor positioning * A contrast injection of Definity was performed to improve assessment of LV function. * Contrast was injected into an intravenous site in the right arm. * One vial of Definity ultrasound contrast was diluted in normal saline to a total volume of 10 ml. A total of '2' ml of solution was administered during imaging. * Lot # [id number] of Definity utilized for procedure. * Expiration date OCT 18. * The attending nurse who injected the contrast agent was GIDEON ELAM, RN. Left Ventricle * The left ventricle is normal in size. * There is moderate concentric left ventricular hypertrophy. * Left ventricular systolic function is low normal. * Ejection Fraction = 50-55%. * There is borderline global hypokinesis of the left ventricle. Right Ventricle * Right ventricular chamber size and systolic function are grossly normal on technically limited imaging. Atria * The left atrium is severely dilated. * Right atrial size is normal. * There is no evidence of atrial septal defect, but resolution does not allow assessment for a patent foramen ovale. Mitral Valve * There is mild mitral annular calcification. * There is no mitral valve stenosis. * There is mild mitral regurgitation. Tricuspid Valve * The tricuspid valve is normal. * There is no tricuspid stenosis. * Significant tricuspid regurgitation is absent. * Doppler findings do not suggest pulmonary hypertension. Aortic Valve * The aortic valve is severely calcified. Images are insufficient to distinguish if this is a trileaflet aortic valve or bicuspid morphology, * Critically severe aortic valve stenosis is present. * Trace aortic regurgitation. Pulmonic Valve * The pulmonary valve is not well seen, but the Doppler examination is normal without significant regurgitation or stenosis. Great Vessels * Aortic root diameter is normal. The proximal ascending thoracic aorta is not visualized well enough to allow measurement. Pericardium/Pleural * There is no pericardial effusion. Great Vessels * Normal inferior vena cava diameter and respiratory variation suggests normal central venous pressure. MMode 2D Measurements and Calculations IVSd 1.7 cm IVSs 1.8 cm LVIDd 4.5 cm LVIDs 4.1 cm LVPWd 1.9 cm LVPWs 2.2 cm IVS/LVPW 0.91 FS 9.9 % EDV(Teich) 94.2 ml ESV(Teich) 73.7 ml EF(Teich) 21.7 % EDV(cubed) 93.3 ml ESV(cubed) 68.3 ml EF(cubed) 26.8 % % IVS thick 2.1 % % LVPW thick 15.8 % LV mass(C)d 379.2 grams LV mass(C)dI 158.7 grams/m\S\2 LV mass(C)s 381.9 grams LV mass(C)sI 159.8 grams/m\S\2 SV(Teich) 20.5 ml SI(Teich) 8.6 ml/m\S\2 SV(cubed) 25.0 ml SI(cubed) 10.5 ml/m\S\2 Ao root diam 2.9 cm Ao root area 6.8 cm\S\2 LA dimension 4.9 cm LA/Ao 1.7 LVOT diam 2.0 cm LVOT area 3.3 cm\S\2 LVAd ap4 44.4 cm\S\2 LVLd ap4 9.4 cm EDV(MOD-sp4) 168.6 ml EDV(sp4-el) 177.9 ml LVAs ap4 36.3 cm\S\2 LVLs ap4 8.5 cm ESV(MOD-sp4) 128.1 ml ESV(sp4-el) 131.9 ml EF(MOD-sp4) 24.0 % EF(sp4-el) 25.8 % LVAd ap2 39.9 cm\S\2 LVLd ap2 9.0 cm EDV(MOD-sp2) 145.0 ml EDV(sp2-el) 150.4 ml LVAs ap2 30.2 cm\S\2 LVLs ap2 8.4 cm ESV(MOD-sp2) 89.2 ml ESV(sp2-el) 92.2 ml EF(MOD-sp2) 38.4 % EF(sp2-el) 38.7 % LVLd %diff -4.44 % EDV(MOD-bp) 158.9 ml LVLs %diff -0.84 % ESV(MOD-bp) 107.0 ml EF(MOD-bp) 32.7 % SV(MOD-sp4) 40.4 ml SI(MOD-sp4) 16.9 ml/m\S\2 SV(MOD-sp2) 55.7 ml SI(MOD-sp2) 23.3 ml/m\S\2 SV(MOD-bp) 51.9 ml SI(MOD-bp) 21.7 ml/m\S\2 SV(sp4-el) 45.9 ml SI(sp4-el) 19.2 ml/m\S\2 SV(sp2-el) 58.2 ml SI(sp2-el) 24.4 ml/m\S\2 Doppler Measurements and Calculations MV E max jose g 126.0 cm/sec MV P1/2t max jose g 145.5 cm/sec MV P1/2t 83.9 msec MVA(P1/2t) 2.6 cm\S\2 MV dec slope 507.7 cm/sec\S\2 MV dec time 0.25 sec Ao V2 max 494.1 cm/sec Ao max PG 97.8 mmHg Ao max PG (full) 96.3 mmHg Ao V2 mean 417.3 cm/sec Ao mean PG 75.1 mmHg Ao mean PG (full) 74.3 mmHg Ao V2 VTI 127.5 cm JUANY(I,A) 0.31 cm\S\2 JUANY(I,D) 0.31 cm\S\2 JUANY(V,A) 0.39 cm\S\2 JUANY(V,D) 0.39 cm\S\2 LV V1 max PG 1.4 mmHg LV V1 mean PG 0.82 mmHg LV V1 max 59.4 cm/sec LV V1 mean 42.7 cm/sec LV V1 VTI 12.3 cm SV(Ao) 861.3 ml SI(Ao) 360.4 ml/m\S\2 SV(LVOT) 40.1 ml SI(LVOT) 16.8 ml/m\S\2
[2017-10-31 09:02] VITALS: BP 106/66; PULSE 83; TEMP 37; O2SAT 96
[2017-10-31] MEDS ORDERED: SODIUM CHLORIDE 0.9% 1000ML 1,000 ML IV SCH (09:45)
--- NOTE | 2017-10-31 10:54 | Pharmacy Progress Note ---
Glycemic Control Intl Consult Date of Service Oct 31, 2017. Scope Glycemic Pharmacist consulted by Dr Gambino on 10/30/17 for glycemic control and to write orders per [facility] inpatient glycemic control protocol Objective Weight (Kilograms): 122.500 Accuchecks BSG (last 24hrs): Test 10/30/17 14:29 10/30/17 21:29 10/31/17 00:17 10/31/17 06:07 Random Glucose 226 mg/dl (70-99) Bedside Glucose 179 mg/dl (70-99) 196 mg/dl (70-99) 325 mg/dl (70-99) Laboratory Data (last 24hrs) Test 10/30/17 14:29 10/30/17 19:26 10/31/17 02:34 Anion Gap 12.0 mmol/L BUN/Creatinine Ratio 24.1 Blood Urea Nitrogen 28 mg/dl Creatinine 1.16 mg/dl 1.22 mg/dl Potassium Level 3.9 mmol/L Sodium Level 130 mmol/L 130 mmol/L 133 mmol/L White Blood Count 17.51 K/uL Red Blood Count 5.91 M/uL Hemoglobin 17.7 g/dL Hematocrit 51.7 % Mean Corpuscular Volume 87.5 fL Mean Corpuscular Hemoglobin 29.9 pg Mean Corpuscular Hemoglobin Concent 34.2 g/dl Platelet Count 140 K/uL Mean Platelet Volume 12.6 fL Neutrophils (%) (Auto) 89.9 % Lymphocytes (%) (Auto) 4.0 % Monocytes (%) (Auto) 5.1 % Eosinophils (%) (Auto) 0.3 % Basophils (%) (Auto) 0.2 % Neutrophils # (Auto) 15.75 K/uL Lymphocytes # (Auto) 0.70 K/uL Monocytes # (Auto) 0.90 K/uL Eosinophils # (Auto) 0.05 K/uL Basophils # (Auto) 0.03 K/uL Hemoglobin A1c 8.9 % HbA1c Test 10/31/17 02:34 Hemoglobin A1c 8.9 % (4.5-5.6) H Recent Pertinent Medications Outpatient Anti-diabetic Regimen: * Invokamet 150/500 mg BID * Glimepiride 4 mg daily * Sitagliptin 100 mg daily The patient is currently receiving: * Basal insulin: Lantus 25 units x 1 last night * Correctional Insulin: Novolog Correction per scale ACHS Goal Range: Low 110 mg/dL - High 150 mg/dL Correction Factor: 25 mg/dL/unit * Prandial insulin: Per carb ratio of 1 unit per 10 grams CHO consumed * Oral Agents: None at this time Risk Factors for Insulin Resistance/Sensitivity: * Infection: L leg cellulitis, r/o osteo * IVF: D5NS + 20 K @ 60 cc/hr -> just switched to NS * Diet: NPO Assessment & Plan ASSESSMENT: * Mr. Best is a 67 y/o male admitted with A fib w/ RVR. He has type 2 diabetes that is not well controlled as per the A1c. * BSGs were just slightly above goal last night but up to 325 mg/dL this AM - suspect this is maybe in part due to the dextrose IVFs, which are now stopped. Will still need basal/bolus insulin due to requiring 3+ oral agents as an outpatient. * Pt is maintained on oral antidiabetic agents as an outpatient * Oral agents are not recommended for inpatient use d/t drug interactions, changing PO intake, and difficulty titrating for acute hyper/hypoglycemia. ADA recommends re-initiating outpatient oral agents 1-2 days prior to discharge if/ when appropriate if they were held on admission. * Will hold oral agents for admission and utilize SQ basal bolus insulin regimen which is the recommended regimen for inpatient glycemic control. * Will initiate weight based insulin dosing for insulin ade patient and titrate based on BSG trends. PLAN FOR INPATIENT GLYCEMIC CONTROL: * Continue to hold outpatient oral diabetes medications * Basal insulin with LANTUS SQ BID as per the following scale: * 12 units for BSG less than 150 * 22 units for BSG 150 or above * NOVOLOG per scale ACHS - tighten parameters * Goal Range: Low 110 mg/dL - High 150 mg/dL * Correction Factor: 20 mg/dL/unit * Nutritional / Prandial insulin per carb ratio of 1 unit per 8 grams CHO consumed Discharge Recommendations: * Patient on 3+ oral agents without A1c at goal * If tolerated, Invokamet dose could be increased (max is 150 mg/1000 mg BID). Another option would be to add a once daily dose of basal insulin. * Further recommendations will be provided closer to discharge Thank you.
--- NOTE | 2017-10-31 11:49 | Cardiology Consultation ---
Cardiology Consultation Date of Consultation: Oct 31, 2017 History of Present Illness Sagar Best a 67 year old male seen in cardiology consultation per the request of Dr. Gambino for the evaluation of atrial fibrillation and aortic valve stenosis. This is the patient's first encounter at our facility. He is apparently been seen in the past by cardiology at [facility] but he describes that he does not follow routinely with cardiology. The patient describes over the last few weeks he has had progressive worsening bilateral lower extremity swelling with associated worsening ulcerations of his left lower leg. He had seen his primary care provider, Dr. Moreland on 10/21/17 describes being placed on furosemide 40 mg daily in addition to his losartan/ hydrochlorothiazide with interval loss of 6 pounds and mild improvement in his bilateral lower extremity edema. He has been counseled that he has a problem with the circulation in his lower legs he states specifically his left peroneal artery. He describes having had a past ultrasound in [place] and it sounds that about a week ago, he had a CT scan or an MRI performed at [place]. It is not certain what the imaging study was for her which modality was utilized. He does however describe having "difficulty with the contrast ". Yesterday he states that he was in [place] at [facility] for further evaluation of his leg circulation. As he was leaving after his appointment there he developed abrupt onset of nausea and describes nearly passing out. He describes that his symptoms came on suddenly having felt well earlier that day. The staff at the vein clinic became concerned and called EMS. Patient was found to have atrial fibrillation with rapid ventricular response, 124 bpm on his initial EKG as well as several PVCs. EKG performed on arrival to the emergency room yesterday also revealed an age-indeterminate septal infarction pattern and age-indeterminate lateral infarction pattern with poor R-wave progression in the precordial leads V1 to V5 with associated J-point elevation. The patient was placed on a diltiazem infusion which is since been discontinued telemetry reveals current atrial fibrillation in the range of 85- 90 bpm. The patient is sitting in bed and feeling well without any chest discomfort, shortness of breath, and otherwise feels well without acute complaint at rest at present. Due to his chief complaint of nauseousness and CT of the abdomen and pelvis had been performed which revealed a few loops of nondilated fluid- filled small bowel perhaps reflective of an ileus or enteritis. History Past Medical History: 1. Long-standing history of type 2 diabetes mellitus 2. Hypertension 3. Dyslipidemia 4. Atrial fibrillation the patient describes being seen by cardiology at [place] for AF many years ago. He describes having had attempted cardioversion 2, and per his recollection it sounds as though he is in a chronic rate controlled atrial fibrillation rate atrial fibrillation in the mid 80 B per minute range as documented on an outside EKG performed in [place] in October, 5. Moderate to severe aortic valve stenosis on echocardiogram, [place], October 2013 (progressed to critically severe aortic valve stenosis as of echocardiogram performed at the [facility] 10/31/17 as described below) 6. Normal coronary arteries by cardiac catheterization [place] October, Past Surgical History: Unavailable Social History: Patient is single, lives alone, is a former smoker. Family History: Noncontributory Review Of Systems A 10 point review of systems is reviewed and is negative with the exception of that above Allergies Coded Allergies: No Known Allergies (Unverified , 10/30/17) Medications Reported Home Medications Medications Dose Route/Sig Max Daily Dose Days Date Category Dose Instructions Lasix (Furosemide) 40 Mg Tab 40 Mg PO DAILY 10/30/17 Reported Mag-Ox (Magnesium Oxide) 400 Mg Tab 400 Mg PO BID 10/30/17 Reported Glimepiride 4 Mg Tab 4 Mg PO DAILY 10/30/17 Reported Multivitamin (Multivitamins) Tab 1 Tab PO DAILY 10/30/17 Reported Invokamet 150-500 mg (Canagliflozin-Metformin HCl) 1 Tab Tab 1 Tab PO BID 10/30/17 Reported Indocin (Indomethacin) 50 Mg Cap 50 Mg PO PRN PRN 10/30/17 Reported WITH FOOD UNTIL PAIN RESOLVES Zyloprim (Allopurinol) 100 Mg Tab 100 Mg PO DAILY 10/30/17 Reported Pradaxa (Dabigatran Etexilate Mesylate) 150 Mg Cap 150 Mg PO BID 10/30/17 Reported Hyzaar 12.5MG/50MG (HCTZ/Losartan Potassium) Tab 1 Tab PO DAILY 10/30/17 Reported Levothyroxine Sodium 50 Mcg Tab 50 Mcg PO DAILY 90 10/30/17 Reported Lopressor (Metoprolol Tartrate) 25 Mg Tab 25 Mg PO BID 10/30/17 Reported Wellbutrin Sr (Bupropion HCl) 150 Mg Ertab 150 Mg PO BID 10/30/17 Reported Januvia (Sitagliptin Phosphate) 100 Mg Tab 100 Mg PO DAILY 10/30/17 Reported Lopid (Gemfibrozil) 600 Mg Tab 600 Mg PO BID 10/30/17 Reported Physical Exam Vital Signs (Last 8hrs): Last 8 Hrs Date Time Temp Pulse Resp B/P (MAP) Pulse Ox O2 Delivery O2 Flow Rate FiO2 10/31/17 09:02 37.0 83 16 106/66 (79) 96 Room Air 10/31/17 08:00 Room Air 10/31/17 03:35 37.1 92 20 111/68 (82) 94 Room Air General Appearance: Alert and Oriented x3. NAD. Head: Normocephalic Atraumatic. Eyes: PERRLA, EOMI, conjunctiva and sclera clear Neck: Supple. No carotid bruits noted. No JVD. No HJD. Respiratory: Breath sounds clear to auscultation bilaterally. No w/r/r. Cardiovascular: Reg rate and rhythm. S1 and S2 noted. No murmurs, rubs, gallops. PMI non displace. Abdomen: Normal bowel sounds, soft nontender. no abdominal bruits. Extremities: No edema, no clubbing or cyanosis. distal pulses 2/4 bilaterally. Neuro: No focal deficits. Psychiatric: Normal affect. Data Last Resulted 10/30/17 14:29 Red Blood Count 5.91, Mean Corpuscular Volume 87.5, Mean Corpuscular Hemoglobin 29.9, Mean Corpuscular Hemoglobin Concent 34.2, Mean Platelet Volume 12.6, Neutrophils (%) (Auto) 89.9, Lymphocytes (%) (Auto) 4.0, Monocytes (%) (Auto) 5.1, Eosinophils (%) (Auto) 0.3, Basophils (%) (Auto) 0.2, Neutrophils # (Auto) 15.75, Lymphocytes # (Auto) 0.70, Monocytes # (Auto) 0.90, Eosinophils # (Auto) 0.05, Basophils # (Auto) 0.03 Last Resulted 10/30/17 14:29 10/31/17 02:34 Past 24 Hours Test 10/30/17 14:29 10/30/17 19:26 10/31/17 02:34 Range/Units Prothromb Time International Ratio 1.4 H 0.9-1.1 Prothrombin Time 14.2 H 9.0-12.0 SECONDS Troponin I 0.078 *H 0.089 *H 0.099 *H 0-0.045 ng/ml EKG on arrival as outlined above, repeat on 10/30/17 at 1836 revealed atrial fibrillation 118 bpm with poor R-wave progression noted throughout the anterior precordial leads suggestive age-indeterminate anterolateral infarction. Transthoracic echocardiogram performed today 10/31/17 reviewed independently by the undersigned: Atrial fibrillation with controlled ventricular rate in the range of 85-90 bpm was present during echocardiogram Moderate concentric left ventricular hypertrophy is present. There is borderline global left ventricular hypokinesis present, left ventricular ejection fraction 50-55%. Aortic valve is severely calcified. The images are insufficient to distinguish at this is a trileaflet aortic valve or bicuspid morphology Critically severe aortic valve stenosis is present, the peak continues with Doppler velocity across aortic valve is 5 m/s, the mean calculated gradient across aortic valve 53 mmHg, the calculated aortic valve area is 0.4 cm. Trace aortic valve regurgitation is present. Mild mitral regurgitation is present. Doppler findings do not suggest pulmonary hypertension Aortic root diameter is normal, the proximal ascending thoracic aorta is not visualized well enough to allow measurement. Bilateral lower extremity ultrasound: Per summary radiology report, suggestion of distal peripheral arterial disease bilateral peroneal artery disease suggested Assessment & Plan Impression: 67-year-old male 1. Patient presented with transient nauseousness, apparent near syncope, has been found with perhaps a mild ileus, also was noted to have atrial fibrillation with rapid ventricular response 2. Apparent chronic typically rate controlled atrial fibrillation, diltiazem infusion has been weaned, and currently he is rate controlled back to his typical baseline per available information. Per patient description it sounds as though he is in chronic atrial fibrillation with rate control including metoprolol tartrate 25 mg twice daily and anticoagulation with Pradaxa 150 mg twice daily 3. Newly diagnosed critically severe aortic valve stenosis, low normal LVEF 4. History of cardiac catheterization performed in [place] in 2013 for diagnosis of chest pain, report describes normal coronary arteries, moderate aortic valve stenosis at that time 5. Type 2 diabetes mellitus, with recent lower leg edema, left lower extremity ulcers, bilateral distal lower extremity peripheral arterial disease, peroneal arteries 6. Recent CT versus MRI performed in [place] approximately a week ago, details unknown at present, patient describes having had a "problem "with contrast, details unknown Discussion/recommendations: I contact the patient's primary care provider's office to facilitate getting the report of the study that he had last week. My hope is that someone can read the report to me to determine what study was performed, with the findings were, and what kind of contrast and will kind of reaction may have taken place which of course would be helpful in his current management. In terms of his atrial fibrillation. Although his troponin is mildly elevated, I think this is consistent with him having had severe aortic valve stenosis in the setting of tachycardia, and is not reimbursement representative of an acute coronary syndrome. His findings of an age-indeterminate anterolateral infarction. We will transition him back to his home dose of metoprolol. Continue to hold his diet for possible ileus for now. He is on IV antibiotics with Zosyn, and I would caution that we need to be very cautious with his IV fluid intake given his critically severe aortic valve stenosis. He is currently on vancomycin and Zosyn. My impression, is that we need to address his lower extremity circulation, perhaps a consultation with endovascular medicine this admission. We need to optimize his lower extremity ulcerations and promote healing perhaps with endovascular revascularization as he is not a candidate for open revascularization at present. Recommend that his ulcers need to be optimized before proceeding with future cardiac catheterization and workup toward a surgical aortic valve replacement. I think her goal for this hospital stay is to optimize his nauseousness, perhaps address his lower extremity arterial insufficiency, and preparation for further outpatient aortic valve workup. He will need a repeat cardiac catheterization to exclude coronary artery disease prior to CT surgery consultation as an outpatient. Patient stated that he was interested in pursuing aortic valve replacement at [facility].
[2017-10-31] MEDS: INSULIN GLARGINE SOLOSTAR 100 UNITS/ML 3 ML PEN SC SCH ×2 (11:53→20:22)
[2017-10-31 12:01] VITALS: BP 84/49; PULSE 86; TEMP 37.1; O2SAT 97
[2017-10-31 12:26] VITALS: Ht 170.2 cm; Wt 123.8 kg
--- NOTE | 2017-10-31 12:31 | Cardiology Progress Note ---
Cardiology Progress Note Date of Service Oct 31, 2017. Cardiology Progress Note I spoke to patient's PCP , Dr Moreland by phone. She was able to read to me the report of an MRA performed last week in [place]. The MRA revealed suggestion of severe left peroneal artery occlusion, perhaps some degree of right peroneal artery disease also, no other significant obstruction. In addition, the patient has had difficult to control diabetes. Most recent hemoglobin A1c had been 8%. He declined insulin in the past, and his medications have been limited by financial limitations. I updated Dr. Moreland about the patient's workup at [facility] thus far.
--- NOTE | 2017-10-31 13:23 | DIAGNOSTIC IMAGING REPORT ---
KUB HISTORY: Acute ileus with abdominal distention. ileus, ff up COMPARISON: CT abdomen and pelvis and acute abdominal series radiographs 10/30/2017 FINDINGS: The bowel gas pattern is non-obstructive. Air is seen within a normal caliber colon. Cholecystectomy clips are noted. Vascular calcifications of the pelvis. There is no organomegaly. No renal calculi. No ureteral calculi. No pneumoperitoneum or pneumatosis. No fracture. IMPRESSION: Nonobstructive bowel gas pattern without pneumoperitoneum. Electronically signed by: Rudy Max M.D. 10/31/2017 1:22 PM Dictated Date/Time: 10/31/2017 1:20 PM
[2017-10-31] MEDS: DOXYCYCLINE HYCLATE 100 MG CAP PO SCH ×2 (14:22→20:10)
--- NOTE | 2017-10-31 15:10 | Progress Note ---
Progress Note Date of Service Oct 31, 2017. Progress Note ID Consult Dictated #[id number] A/P: 1. LE ulcers -Continue doxy for now, await blood cultures, suspect vascular cause -Thank you
--- NOTE | 2017-10-31 15:31 | INFECT. DISEASE CONSULTATION ---
DATE OF CONSULTATION: 10/31/2017 HISTORY OF PRESENT ILLNESS: This is a 67-year-old gentleman who was admitted from a diagnostic center after he was found to be in AFib with rapid ventricular response. He was having outpatient arterial ultrasounds done on his lower extremities to rule out peripheral arterial disease secondary to chronic bilateral leg wounds and he developed nausea. He then was found to be in AFib and sent to the hospital. He was started on a Cardizem drip and is being followed by cardiology. He states that he has had prolonged ulcerations of his lower extremity. He has had no definitive treatment for this. He recently completed a 10-day course of unknown antibiotics from his primary physician for suspected cellulitis. He did not notice an appreciable difference in his ulcerations. He states that the ulcerations are chronic. They are not draining. He does admit to chronic discoloration of his lower extremities. He states that his legs are feeling better today, but he attributes this to being flat in bed and not up and ambulating on his lower extremities. He does admit to chronic lower extremity edema as well. He denies any fevers or chills. He was initially given vancomycin and Zosyn and then changed to oral doxycycline. Infectious diseases was asked to see the patient in consultation for transition to oral antibiotics. He has been afebrile and hemodynamically stable since admission to the hospital. He denies any chest pain, cough, shortness of breath, nausea, vomiting, or diarrhea. REVIEW OF SYSTEMS: His remaining review of systems is reviewed and unremarkable. PAST MEDICAL HISTORY: Significant for AFib, type 2 diabetes, moderate aortic stenosis, hypertension. PAST SURGICAL HISTORY: Unremarkable. SOCIAL HISTORY: Significant for history of tobacco use. He denies any alcohol or drug use. FAMILY HISTORY: Noncontributory. ALLERGIES: There are no known drug allergies. MEDICATIONS: Doxycycline, Lantus, allopurinol, Synthroid, Wellbutrin, Pradaxa, gemfibrozil, magnesium, Lopressor, Zofran, Tylenol. PHYSICAL EXAMINATION: VITAL SIGNS: He is afebrile, pulse 86, respiratory rate 16, blood pressure 106/66, oxygen saturation is 96% on room air. GENERAL: He is awake, alert and oriented x3. He is in no acute distress. HEENT: Mucous membranes are moist. Extraocular muscles are intact. HEART: Without murmur. LUNGS: Clear bilaterally. ABDOMEN: Soft, nondistended. There is no edema bilaterally. There is chronic superficial ulcerations bilaterally. There is no purulent drainage or bleeding. There is no warmth or tenderness. There is chronic discoloration. LABORATORY STUDIES: CBC: White blood cell count yesterday 17.5, hemoglobin 17.7, platelets 140. Chemistry panel: Sodium 133, potassium 3.9, chloride 97, bicarbonate 21, BUN 28, creatinine 1.1, glucose has been between 150 and 325. LFTs are within normal limits. UA was negative. Blood cultures are pending. Lower extremity ultrasounds showed high-grade stenosis. ASSESSMENT AND PLAN: Lower extremity ulcerations. I suspect that these are related more to vascular issue rather than infectious. He is currently on doxycycline and can continue this pending blood culture results. We will follow along with you. Thank you for this consultation.
[2017-10-31 15:39] VITALS: BP 104/69; PULSE 78; TEMP 36.9; O2SAT 96
[2017-10-31] MEDS ORDERED: NURSING VERBAL MED ORDER ONE (17:00)
[2017-10-31] MEDS: INSULIN ASPART 100 UNITS/ML 3 ML PEN SQ SCH ×2 (17:15→20:20)
--- NOTE | 2017-10-31 18:30 | Progress Note ---
Subjective Date of Service: Oct 31, 2017. Subjective Pt evaluation today including: conversation w/ patient, physical exam, lab review, review of studies, review of inpatient medication list Saw/examined the patient in room 230-2 He is doing better today Has LLE pain, warmth to touch, erythema States he has some shortness of breath, dyspnea with exertion and at times at rest Denies chest pain/palpitations Denies abdominal pain Problem List Medical Problems: (1) Atrial fibrillation with rapid ventricular response Status: Acute (2) Ileus Status: Acute (3) Nausea Status: Acute Review of Systems Constitutional: No fever, No chills Respiratory: + shortness of breath, + dyspnea on exertion, + dyspnea at rest, No cough, No sputum, No wheezing, No hemoptysis Cardiac: + edema, No chest pain, No palpitations Abdomen: No pain, No nausea, No vomiting, No diarrhea, No constipation, No GI bleeding Psychiatric: No depression symptoms, No anxiety, No insomnia Skin: + new/changing skin lesions Medications Current Inpatient Medications Medications (Trade) Dose Ordered Sig/Mamie Route Start Time Stop Time Status Last Admin Dose Admin Ioversol (Optiray 320) 125 ml UD PRN IV 10/30/17 17:15 11/03/17 17:14 Acetaminophen (Tylenol Tab) 650 mg Q4H PRN PO 10/30/17 18:30 11/29/17 18:29 Ondansetron HCl (Zofran Inj) 4 mg Q6H PRN IV 10/30/17 18:30 11/29/17 18:29 Miscellaneous Information (Consult Glycemic Management Pharmacy) 1 ea UD PRN N/A 10/30/17 19:06 11/29/17 19:05 Glucose (Glucose 40% Gel) 15-30 GRAMS 15 GRAMS... UD PRN PO 10/30/17 18:30 11/29/17 18:29 Glucose (Glucose Chew Tab) 4-8 Tablets 4 Tabl... UD PRN PO 10/30/17 18:30 11/29/17 18:29 Dextrose (Dextrose 50% 50ML Syringe) 25-50ML 25ML FOR ... UD PRN IV 10/30/17 18:30 11/29/17 18:29 Glucagon (Glucagon Inj) 1 mg UD PRN SQ 10/30/17 18:30 11/29/17 18:29 Carbohydrates (Carbohydrates For Hypoglycemia) 15-30 GRAMS 15 grams if BSG 54-69... UD PRN PO 10/30/17 18:30 11/29/17 18:29 Allopurinol (Zyloprim Tab) 100 mg DAILY PO 10/31/17 09:00 11/30/17 08:59 10/31/17 08:20 100 MG Bupropion HCl (Wellbutrin-Sr Tab) 150 mg BID PO 10/30/17 21:00 11/29/17 20:59 10/31/17 08:20 150 MG Dabigatran (Pradaxa Cap) 150 mg BID PO 10/30/17 21:00 11/29/17 20:59 10/31/17 08:21 150 MG Gemfibrozil (Lopid Tab) 600 mg BID PO 10/30/17 21:00 11/29/17 20:59 10/31/17 08:20 600 MG Levothyroxine Sodium (Synthroid Tab) 50 mcg DAILYBB PO 10/31/17 06:00 11/30/17 05:59 10/31/17 05:52 50 MCG Magnesium Oxide (Mag-Ox Tab) 400 mg BID PO 10/30/17 21:00 11/29/17 20:59 10/31/17 08:21 400 MG Metoprolol Tartrate (Lopressor Tab) 25 mg BID PO 10/30/17 21:00 11/29/17 20:59 10/31/17 08:21 25 MG Insulin Glargine (Lantus Solostar Pen) see protocol text BID SC 10/31/17 09:45 11/30/17 09:44 10/31/17 11:53 22 UNITS Doxycycline Hyclate (Vibramycin Cap) 100 mg BID PO 10/31/17 14:00 11/02/17 13:59 10/31/17 14:22 100 MG Insulin Aspart (novoLOG ASPART) SLIDING SCALE If C... ACHS SQ 10/31/17 17:15 11/30/17 17:14 Objective Vital Signs Date Time Temp Pulse Resp B/P (MAP) Pulse Ox O2 Delivery O2 Flow Rate FiO2 10/31/17 15:39 36.9 78 19 104/69 (81) 96 Room Air 10/31/17 12:01 37.1 86 16 84/49 (61) 97 Room Air 10/31/17 09:02 37.0 83 16 106/66 (79) 96 Room Air 10/31/17 08:00 Room Air 10/31/17 03:35 37.1 92 20 111/68 (82) 94 Room Air 10/31/17 00:01 Room Air 10/30/17 23:35 37.2 100 20 104/71 (82) 93 Room Air 10/30/17 21:43 102 110/73 (85) 10/30/17 20:05 Room Air 10/30/17 19:24 37.4 112 22 120/75 (90) 92 10/30/17 18:27 37.1 116 20 113/70 Room Air Physical Exam General Appearance: no apparent distress Respiratory/Chest: no respiratory distress, no accessory muscle use, + decreased breath sounds Cardiovascular: regular rate, rhythm, no edema, + systolic murmur Extremities: + pertinent finding (warmth in the left lower extremity, venous stasis discoloration) Neurologic/Psychiatric: no motor/sensory deficits, alert, normal mood/affect Laboratory Results Last 24 Hours Test 10/30/17 19:26 10/30/17 21:29 10/31/17 00:17 10/31/17 02:34 Sodium Level 130 mmol/L 133 mmol/L Troponin I 0.089 ng/ml 0.099 ng/ml Bedside Glucose 179 mg/dl 196 mg/dl Creatinine 1.22 mg/dl Est Creatinine Clear Calc Drug Dose 74.0 ml/min Estimated GFR () 70.2 Estimated GFR (Non- 60.5 Estimated Average Glucose 209 mg/dl Hemoglobin A1c 8.9 % Test 10/31/17 06:07 10/31/17 11:21 10/31/17 17:06 Bedside Glucose 325 mg/dl 157 mg/dl 130 mg/dl Assessment and Plan This is a 67 year old male with a past medical history of DM2, HTN, HLD, depression/anxiety, paroxysmal atrial fibrillation on long-term anticoagulation , hypothyroidism - presents with nausea and shortness of breath Likely Chronic Atrial Fibrillation with RVR - patient with a hx. of atrial fibrillation, presented with rapid ventricular response - initially started on a Cardizem drip; now back on metoprolol tartrate - continue Pradaxa for anticoagulation - appreciate cardiology input Newly Diagnosed Critically Severe Aortic Stenosis - holding IVFs, changing IV abx. to PO to prevent overload - EF of around 50-55% - will need outpatient aortic valve work-up; likely surgical repair at tertiary care center Peripheral Vascular Disease LLE Wound Ulcerations - arterial disease noted; L peroneal artery stenosis - Dr. Rolon consulted for vascular management - once optimized, can d/c home - changed IV abx. to Doxycycline - ID consulted for further input, length of treatment, etc. Mild Ileus - spoke with GI, this likely does not represent ileus, though read as such on CT - will give clears, stop IVFs, and advance diet as tolerated DM2 - ha1c of 8.9%, not well controlled - currently on 4 oral agents as outpatient - will stop oral agents and insulin sliding scale with Lantus - appreciate glycemic control consultation Hypothyroidism - continue Synthroid DVT ppx - Pradaxa FULL CODE
[2017-10-31 19:37] VITALS: BP 109/73; PULSE 93; TEMP 36.7; O2SAT 96
[2017-10-31] MEDS ORDERED: INSULIN ASPART 100 UNITS/ML 3 ML PEN SC SCH (21:00)
[2017-10-31 23:26] VITALS: BP 107/71; PULSE 108; TEMP 37.5; O2SAT 97
[2017-11-01] VITALS (9 sets, daily range): BP systolic 110–141; BP diastolic 66–87; PULSE 69–136; TEMP 36.5–37.1; O2SAT 93–97
[2017-11-01] MEDS: LEVOTHYROXINE 50 MCG TAB PO SCH (06:01)
[2017-11-01 06:44] LABS: CREATININE 0.89 mg/dl (0.60-1.40)
[2017-11-01 06:45] LABS: CALCIUM 8.5 mg/dl (8.5-10.1); POTASSIUM 3.6 mmol/L (3.5-5.1)
[2017-11-01 06:52] LABS: HEMOGLOBIN 15.6 g/dL (14.0-18.0); MEAN CORPUSCULAR HEMOGLOBIN 29.2 pg (25-34); MEAN CORPUSCULAR HGB CONC 33.2 g/dl (32-36); RED CELL DISTRIBUTION WIDTH SD 51.5 fL (36.4-46.3); WHITE BLOOD COUNT 12.53 K/uL (4.8-10.8)
[2017-11-01] MEDS: INSULIN ASPART 100 UNITS/ML 3 ML PEN SQ SCH ×4 (08:03→21:39)
[2017-11-01 08:19] LABS: MEAN PLATELET VOLUME 12.4 fL (7.4-10.4); PLATELET COUNT 120 K/uL (130-400)
[2017-11-01] MEDS: DOXYCYCLINE HYCLATE 100 MG CAP PO SCH ×2 (08:23→21:36)
[2017-11-01] MEDS: MAGNESIUM OXIDE 400 MG TAB PO SCH ×2 (08:23→21:33)
[2017-11-01] MEDS: BuPROPion SR 150 MG TABCR PO SCH ×2 (08:23→21:30)
[2017-11-01] MEDS: METOPROLOL TARTRATE 25 MG TAB PO SCH ×2 (08:23→21:32)
[2017-11-01] MEDS: ALLOPURINOL 100 MG TAB PO SCH (08:23)
[2017-11-01] MEDS: DABIGATRAN ELEXILATE 75 MG CAP PO SCH ×2 (08:23→21:34)
[2017-11-01] MEDS: GEMFIBROZIL 600 MG TAB PO SCH ×2 (08:23→21:33)
[2017-11-01] MEDS: INSULIN GLARGINE SOLOSTAR 100 UNITS/ML 3 ML PEN SC SCH ×2 (08:26→21:41)
--- NOTE | 2017-11-01 11:41 | Cardiology Follow-Up ---
Subjective General Date of Service: Nov 01, 2017. Chief Complaint: Follow-up atrial fibrillation, edema, aortic stenosis Pt evaluation today including: conversation w/ patient, physical exam History of Present Illness The patient is a 67 year old male seen in cardiology follow-up. Patient states that his nausea has trended toward improvement. He had a liquid diet and has had several bowel movements and feels his stomach is doing better. Telemetry reveals atrial fibrillation with mildly elevated ventricular rates in the range of 105 bpm 106 bpm this morning, which is a little bit higher than yesterday. Allergies Coded Allergies: No Known Allergies (Unverified , 10/30/17) Social History Smoking Status: Former Smoker Hx Tobacco Use In Past Year?: No Hx Alcohol Use - Type And Amou: No Hx Substance Use - Type And Am: No Problem List Medical Problems: (1) Atrial fibrillation with rapid ventricular response Status: Acute (2) Ileus Status: Acute (3) Nausea Status: Acute Physical Exam Vital Signs Last Vital Signs Documentation Date Time Temp Pulse Resp B/P (MAP) Pulse Ox O2 Delivery O2 Flow Rate FiO2 11/01/17 08:30 Room Air 11/01/17 06:59 37.1 113 17 117/76 (90) 95 1.0 Physical Exam Constitutional: Level of Distress: chronically ill Head: normocephalic Neck: supple Lungs: Auscultation: no wheezing, no rales/crackles, no rhonchi Cardiovascular: Heart Auscultation: irregular rate rhythm, pertinent finding (The patient's murmur is very faint and minimally audible) Abdomen: Inspection & Palpation: soft, non-distended Extremities: pertinent finding (2+ bilateral lower extremity edema, with venous stasis changes, multiple healing superficial ulcerations on the left lower extremity) Neurologic: Gait & Station: pertinent finding (No focal deficits) Assessment and Plan Assessment and Plan Impression: 67-year-old male 1. Critically severe aortic valve stenosis, currently compensated overall from a respiratory standpoint 2. Chronic atrial fibrillation, ventricular rate mildly elevated 3. Lower extremity edema, left lower extremity superficial ulcerations Discussion/recommendations: Regarding his atrial fibrillation, will ease up on his metoprolol tartrate to 37.5 mg twice daily, with caution given severe aortic valve stenosis Continue Pradaxa for stroke prophylaxis. Regarding patient's edema, his renal function is stable status post exposure to iodinated contrast. Proceed with IV furosemide, 20 mg today. The patient's recent MRA report was obtained. There is no significant stenosis in the large lower extremity vessels including is below the knee, the anterior tibial and posterior tibial. The patient's lower extremity arterial duplex study images were reviewed with endovascular medicine, no indication for revascularization for bilateral peroneal artery stenosis. Lower extremity wounds likely in part due to venous insufficiency, congestion, and will therefore treat with ongoing diuretic therapy to ease the congestion. Ultimately will require cardiac catheterization and consideration toward aortic valve replacement at some point, but I would like to make sure his ulcers are trending toward improvement first. Given his critically severe aortic valve stenosis, I think the titration of his diuretic therapy and optimizing his lower extremity edema is best performed in the hospital. Laboratory Results Last 24 Hours Test 10/31/17 17:06 10/31/17 20:17 11/01/17 05:42 11/01/17 07:44 Bedside Glucose 130 mg/dl 126 mg/dl 111 mg/dl White Blood Count 12.53 K/uL Red Blood Count 5.34 M/uL Hemoglobin 15.6 g/dL Hematocrit 47.0 % Mean Corpuscular Volume 88.0 fL Mean Corpuscular Hemoglobin 29.2 pg Mean Corpuscular Hemoglobin Concent 33.2 g/dl RDW Standard Deviation 51.5 fL RDW Coefficient of Variation 16.0 % Platelet Count 120 K/uL Mean Platelet Volume 12.4 fL Platelet Estimate DECREASED Sodium Level 134 mmol/L Potassium Level 3.6 mmol/L Chloride Level 101 mmol/L Carbon Dioxide Level 27 mmol/L Anion Gap 6.0 mmol/L Blood Urea Nitrogen 21 mg/dl Creatinine 0.89 mg/dl Est Creatinine Clear Calc Drug Dose 101.1 ml/min Estimated GFR () 101.8 Estimated GFR (Non- 87.9 BUN/Creatinine Ratio 23.6 Random Glucose 102 mg/dl Calcium Level 8.5 mg/dl Magnesium Level 2.5 mg/dl Test 11/01/17 11:02 Bedside Glucose 191 mg/dl
--- NOTE | 2017-11-01 13:29 | Pharmacy Progress Note ---
Pharmacy Glycemic Short Note 2 Date of Service Nov 01, 2017. OUTPATIENT ANTIDIABETIC REGIMEN: * Invokamet 150/500 mg BID * Glimepiride 4 mg daily * Sitagliptin 100 mg daily Test 10/31/17 17:06 10/31/17 20:17 11/01/17 05:42 11/01/17 07:44 Bedside Glucose 130 mg/dl (70-99) 126 mg/dl (70-99) 111 mg/dl (70-99) Random Glucose 102 mg/dl (70-99) Test 11/01/17 11:02 Bedside Glucose 191 mg/dl (70-99) ASSESSMENT: 11/01/17 * The patient received 34 units of insulin yesterday * BSGs have been much improved since d/c of dextrose IVFs yesterday AM * He received almost all basal insulin yesterday and was NPO for a majority of the day, but did have the dextrose fluids in the AM * Diet has been advanced to type 2 diabetes * Will plan to keep insulin regimen the same for now. Lantus is still dosed per a scale so this will provide a higher dose if necessary. Of note, BSG at lunch is elevated but nursing had a note that po intake this AM was not covered. 10/31/17 * Mr. Best is a 67 y/o male admitted with A fib w/ RVR. He has type 2 diabetes that is not well controlled as per the A1c. * BSGs were just slightly above goal last night but up to 325 mg/dL this AM - suspect this is maybe in part due to the dextrose IVFs, which are now stopped. Will still need basal/bolus insulin due to requiring 3+ oral agents as an outpatient. * Pt is maintained on oral antidiabetic agents as an outpatient * Oral agents are not recommended for inpatient use d/t drug interactions, changing PO intake, and difficulty titrating for acute hyper/hypoglycemia. ADA recommends re-initiating outpatient oral agents 1-2 days prior to discharge if/ when appropriate if they were held on admission. * Will hold oral agents for admission and utilize SQ basal bolus insulin regimen which is the recommended regimen for inpatient glycemic control. * Will initiate weight based insulin dosing for insulin ade patient and titrate based on BSG trends. PLAN FOR INPATIENT GLYCEMIC CONTROL: * Continue to hold outpatient oral diabetes medications * Basal insulin with LANTUS SQ BID as per the following scale: no change * 12 units for BSG less than 150 * 22 units for BSG 150 or above * Bolus insulin - no change * NovoLog per scale ACHS or Q6hrs while NPO * Goal Range: Low 110 mg/dL - High 150 mg/dL * Correction Factor: 20 mg/dL/unit * Nutritional / Prandial insulin per carb ratio of 1 unit per 8 grams CHO consumed PLAN FOR DISCHARGE: * Patient on 3+ oral agents without A1c at goal * If tolerated, Invokamet dose could be increased (max is 150 mg/1000 mg BID). Another option would be to add a once daily dose of basal insulin - would recommend Lantus (or Basaglar) 15 units qHS. Increase by 2 units every 3 days for AM BSG above 150 mg/dL. * Hesitant to recommend initiation of basal at 0.2 units/kg (25 units) because of his minimal requirements as an inpatient
--- NOTE | 2017-11-01 14:49 | Progress Note ---
Subjective Date of Service: Nov 01, 2017. Subjective on doxy, tolerating well. afebrile. no f/c. for outpt workup for valve replacement post d/c. blood cultures remain negative. Problem List Medical Problems: (1) Atrial fibrillation with rapid ventricular response Status: Acute (2) Ileus Status: Acute (3) Nausea Status: Acute Objective Vital Signs Date Time Temp Pulse Resp B/P (MAP) Pulse Ox O2 Delivery O2 Flow Rate FiO2 11/01/17 11:57 36.8 128 18 138/84 (102) 93 Room Air 11/01/17 08:30 Room Air 11/01/17 06:59 37.1 113 17 117/76 (90) 95 Nasal Cannula 1.0 11/01/17 04:44 37.1 109 16 112/74 (87) 97 Nasal Cannula 1.0 11/01/17 00:01 Room Air 10/31/17 23:26 37.5 108 16 107/71 (83) 97 Nasal Cannula 1.0 10/31/17 20:00 Room Air 10/31/17 19:37 36.7 93 16 109/73 (85) 96 Room Air 10/31/17 15:39 36.9 78 19 104/69 (81) 96 Room Air Physical Exam Comments: Item Value Date Time Blood Culture - Preliminary Resulted 10/30/171925 Blood NO GROWTH TO DATE. Blood Culture - Preliminary Resulted 10/30/171925 Blood NO GROWTH TO DATE. Laboratory Results Last 24 Hours Test 10/31/17 17:06 10/31/17 20:17 11/01/17 05:42 11/01/17 07:44 Bedside Glucose 130 mg/dl 126 mg/dl 111 mg/dl White Blood Count 12.53 K/uL Red Blood Count 5.34 M/uL Hemoglobin 15.6 g/dL Hematocrit 47.0 % Mean Corpuscular Volume 88.0 fL Mean Corpuscular Hemoglobin 29.2 pg Mean Corpuscular Hemoglobin Concent 33.2 g/dl RDW Standard Deviation 51.5 fL RDW Coefficient of Variation 16.0 % Platelet Count 120 K/uL Mean Platelet Volume 12.4 fL Platelet Estimate DECREASED Sodium Level 134 mmol/L Potassium Level 3.6 mmol/L Chloride Level 101 mmol/L Carbon Dioxide Level 27 mmol/L Anion Gap 6.0 mmol/L Blood Urea Nitrogen 21 mg/dl Creatinine 0.89 mg/dl Est Creatinine Clear Calc Drug Dose 101.1 ml/min Estimated GFR () 101.8 Estimated GFR (Non- 87.9 BUN/Creatinine Ratio 23.6 Random Glucose 102 mg/dl Calcium Level 8.5 mg/dl Magnesium Level 2.5 mg/dl Test 11/01/17 11:02 Bedside Glucose 191 mg/dl Assessment and Plan (1) Leg ulcer Assessment & Plan: continue doxy x 14 days total, would benefit from outpt wound care post d/c.
--- NOTE | 2017-11-01 17:18 | Cardiology Progress Note ---
Cardiology Progress Note Date of Service Nov 01, 2017. Cardiology Progress Note On review of telemetry, and assist the patient's heart rate has trended up with atrial fibrillation in the range of 130 bpm, this is significantly higher than the 85 bpm when I had initially assessed him yesterday. He was finishing his evening meal. He was sitting upright, and was Short of breath. I reviewed his computer record, I had intended for him to have a dose of furosemide 20 mg IV at 11 AM, but I had inadvertently ordered to start tomorrow. Given his severe aortic valve stenosis medication changes with this patient need to be approached with a great degree of caution. I had increased his metoprolol from 25 mg twice daily this morning to 37.5 mg twice daily and will continue this dose. We will proceed with diuretics, furosemide 40 mg IV 1 stat, followed by 20 mg due tomorrow morning. I reviewed the need for the status of furosemide with his nurse and the patient.
--- NOTE | 2017-11-01 17:19 | Progress Note ---
Subjective Date of Service: Nov 01, 2017. Subjective Pt evaluation today including: conversation w/ patient, physical exam, lab review, review of studies, review of inpatient medication list Saw/examined the patient in room 230-2 He has some dyspnea even while he's laying Denies chest pain lower extremity swelling persists Problem List Medical Problems: (1) Atrial fibrillation with rapid ventricular response Status: Acute (2) Ileus Status: Acute (3) Nausea Status: Acute Review of Systems Constitutional: No fever, No chills Respiratory: + shortness of breath, + dyspnea on exertion, + dyspnea at rest, No cough, No sputum, No wheezing, No hemoptysis Cardiac: + edema, No chest pain, No palpitations Medications Current Inpatient Medications Medications (Trade) Dose Ordered Sig/Mamie Route Start Time Stop Time Status Last Admin Dose Admin Ioversol (Optiray 320) 125 ml UD PRN IV 10/30/17 17:15 11/03/17 17:14 Acetaminophen (Tylenol Tab) 650 mg Q4H PRN PO 10/30/17 18:30 11/29/17 18:29 Ondansetron HCl (Zofran Inj) 4 mg Q6H PRN IV 10/30/17 18:30 11/29/17 18:29 Miscellaneous Information (Consult Glycemic Management Pharmacy) 1 ea UD PRN N/A 10/30/17 19:06 11/29/17 19:05 Glucose (Glucose 40% Gel) 15-30 GRAMS 15 GRAMS... UD PRN PO 10/30/17 18:30 11/29/17 18:29 Glucose (Glucose Chew Tab) 4-8 Tablets 4 Tabl... UD PRN PO 10/30/17 18:30 11/29/17 18:29 Dextrose (Dextrose 50% 50ML Syringe) 25-50ML 25ML FOR ... UD PRN IV 10/30/17 18:30 11/29/17 18:29 Glucagon (Glucagon Inj) 1 mg UD PRN SQ 10/30/17 18:30 11/29/17 18:29 Carbohydrates (Carbohydrates For Hypoglycemia) 15-30 GRAMS 15 grams if BSG 54-69... UD PRN PO 10/30/17 18:30 11/29/17 18:29 Allopurinol (Zyloprim Tab) 100 mg DAILY PO 10/31/17 09:00 11/30/17 08:59 11/01/17 08:23 100 MG Bupropion HCl (Wellbutrin-Sr Tab) 150 mg BID PO 10/30/17 21:00 11/29/17 20:59 11/01/17 08:23 150 MG Dabigatran (Pradaxa Cap) 150 mg BID PO 10/30/17 21:00 11/29/17 20:59 11/01/17 08:23 150 MG Gemfibrozil (Lopid Tab) 600 mg BID PO 10/30/17 21:00 11/29/17 20:59 11/01/17 08:23 600 MG Levothyroxine Sodium (Synthroid Tab) 50 mcg DAILYBB PO 10/31/17 06:00 11/30/17 05:59 11/01/17 06:01 50 MCG Magnesium Oxide (Mag-Ox Tab) 400 mg BID PO 10/30/17 21:00 11/29/17 20:59 11/01/17 08:23 400 MG Insulin Glargine (Lantus Solostar Pen) see protocol text BID SC 10/31/17 09:45 11/30/17 09:44 11/01/17 08:26 12 UNITS Doxycycline Hyclate (Vibramycin Cap) 100 mg BID PO 10/31/17 14:00 11/02/17 13:59 11/01/17 08:23 100 MG Insulin Aspart (novoLOG ASPART) SLIDING SCALE If C... ACHS SQ 10/31/17 17:15 11/30/17 17:14 11/01/17 12:05 11 UNITS Metoprolol Tartrate (Lopressor Tab) 37.5 mg BID PO 11/01/17 21:00 11/29/17 20:59 Furosemide 40 mg/ Syringe 4 ml @ 4 mls/min ONE STAT IV 11/01/17 17:04 11/01/17 17:05 UNV Furosemide 20 mg/ Syringe 2 ml @ 4 mls/min DAILY IV 11/02/17 09:00 12/02/17 08:59 UNV Objective Vital Signs Date Time Temp Pulse Resp B/P (MAP) Pulse Ox O2 Delivery O2 Flow Rate FiO2 11/01/17 15:06 36.6 118 18 111/66 (81) 96 Nasal Cannula 1.0 11/01/17 11:57 36.8 128 18 138/84 (102) 93 Room Air 11/01/17 08:30 Room Air 11/01/17 06:59 37.1 113 17 117/76 (90) 95 Nasal Cannula 1.0 11/01/17 04:44 37.1 109 16 112/74 (87) 97 Nasal Cannula 1.0 11/01/17 00:01 Room Air 10/31/17 23:26 37.5 108 16 107/71 (83) 97 Nasal Cannula 1.0 10/31/17 20:00 Room Air 10/31/17 19:37 36.7 93 16 109/73 (85) 96 Room Air Physical Exam General Appearance: + mild distress Respiratory/Chest: + respiratory distress, + decreased breath sounds Cardiovascular: no murmur, + irregularly irregular Extremities: + swelling (+erythema of the LLE, with edema; warmth to touch), + pertinent finding Neurologic/Psychiatric: no motor/sensory deficits, alert, normal mood/affect Laboratory Results Last 24 Hours Test 10/31/17 20:17 11/01/17 05:42 11/01/17 07:44 11/01/17 11:02 Bedside Glucose 126 mg/dl 111 mg/dl 191 mg/dl White Blood Count 12.53 K/uL Red Blood Count 5.34 M/uL Hemoglobin 15.6 g/dL Hematocrit 47.0 % Mean Corpuscular Volume 88.0 fL Mean Corpuscular Hemoglobin 29.2 pg Mean Corpuscular Hemoglobin Concent 33.2 g/dl RDW Standard Deviation 51.5 fL RDW Coefficient of Variation 16.0 % Platelet Count 120 K/uL Mean Platelet Volume 12.4 fL Platelet Estimate DECREASED Sodium Level 134 mmol/L Potassium Level 3.6 mmol/L Chloride Level 101 mmol/L Carbon Dioxide Level 27 mmol/L Anion Gap 6.0 mmol/L Blood Urea Nitrogen 21 mg/dl Creatinine 0.89 mg/dl Est Creatinine Clear Calc Drug Dose 101.1 ml/min Estimated GFR () 101.8 Estimated GFR (Non- 87.9 BUN/Creatinine Ratio 23.6 Random Glucose 102 mg/dl Calcium Level 8.5 mg/dl Magnesium Level 2.5 mg/dl Test 11/01/17 16:21 Bedside Glucose 150 mg/dl Assessment and Plan This is a 67 year old male with a past medical history of DM2, HTN, HLD, depression/anxiety, paroxysmal atrial fibrillation on long-term anticoagulation , hypothyroidism - presents with nausea and shortness of breath Likely Chronic Atrial Fibrillation with RVR 11/01 - appreciate cardiology input - Metoprolol was decreased today due to recent diagnosis of critically severe aortic stenosis - continue Pradaxa 10/31 - patient with a hx. of atrial fibrillation, presented with rapid ventricular response - initially started on a Cardizem drip; now back on metoprolol tartrate - continue Pradaxa for anticoagulation - appreciate cardiology input Newly Diagnosed Critically Severe Aortic Stenosis 11/01 - continue with Lasix as per cardiology, will likely need diuretics on discharge 10/31 - holding IVFs, changing IV abx. to PO to prevent overload - EF of around 50-55% - will need outpatient aortic valve work-up; likely surgical repair at tertiary care center Peripheral Vascular Disease LLE Wound Ulcerations 11/01 - appreciate ID input - doxycycline x 14 days - outpatient wound care input 10/31 - arterial disease noted; L peroneal artery stenosis - Dr. Rolon consulted for vascular management - once optimized, can d/c home - changed IV abx. to Doxycycline - ID consulted for further input, length of treatment, etc. Mild Ileus - spoke with GI, this likely does not represent ileus, though read as such on CT - will give clears, stop IVFs, and advance diet as tolerated DM2 - ha1c of 8.9%, not well controlled - currently on 4 oral agents as outpatient - will stop oral agents and insulin sliding scale with Lantus - appreciate glycemic control consultation Hypothyroidism - continue Synthroid DVT ppx - Pradaxa FULL CODE
[2017-11-01] MEDS ORDERED: VANCOMYCIN TROUGH ONE (17:30)
[2017-11-01] MEDS ORDERED: FUROSEMIDE INJ 40 MG in SYRINGE 0 ML IV ONE (17:30)
[2017-11-01] MEDS ORDERED: CALCIUM CARBONATE 500 MG CHEWABLE PO ONE (23:00)
[2017-11-02] MEDS ORDERED: LORAZEPAM 0.5 MG TAB PO ONE (01:15)
[2017-11-02] MEDS: ACETAMINOPHEN 325 MG TAB PO PRN ×2 (01:24→20:43)
[2017-11-02 03:39] VITALS: BP 120/83; PULSE 73; TEMP 36.7; O2SAT 95
[2017-11-02] MEDS: LEVOTHYROXINE 50 MCG TAB PO SCH (05:38)
[2017-11-02 07:33] VITALS: BP 119/77; PULSE 99; TEMP 36.6; O2SAT 95
[2017-11-02 08:12] LABS: HEMATOCRIT 47.7 % (42-52); HEMOGLOBIN 15.7 g/dL (14.0-18.0); MEAN CORPUSCULAR HGB CONC 32.9 g/dl (32-36); MEAN PLATELET VOLUME 12.4 fL (7.4-10.4); PLATELET COUNT 123 K/uL (130-400); RED CELL DISTRIBUTION WIDTH SD 50.7 fL (36.4-46.3); WHITE BLOOD COUNT 9.99 K/uL (4.8-10.8)
[2017-11-02 08:20] LABS: CALCIUM 8.8 mg/dl (8.5-10.1); CREATININE 0.97 mg/dl (0.60-1.40); POTASSIUM 3.4 mmol/L (3.5-5.1)
[2017-11-02] MEDS ORDERED: POTASSIUM CHLORIDE 10 MEQ TABCR PO STA (08:21)
[2017-11-02] MEDS: METOPROLOL TARTRATE 25 MG TAB PO SCH ×2 (09:00→20:37)
[2017-11-02] MEDS: INSULIN GLARGINE SOLOSTAR 100 UNITS/ML 3 ML PEN SC SCH ×2 (09:00→21:33)
[2017-11-02] MEDS: DOXYCYCLINE HYCLATE 100 MG CAP PO SCH (09:00)
[2017-11-02] MEDS: MAGNESIUM OXIDE 400 MG TAB PO SCH (09:00)
[2017-11-02] MEDS: GEMFIBROZIL 600 MG TAB PO SCH ×2 (09:00→20:37)
[2017-11-02] MEDS: FUROSEMIDE INJ 20 MG in SYRINGE 0 ML IV SCH (09:00)
[2017-11-02] MEDS: DABIGATRAN ELEXILATE 75 MG CAP PO SCH ×2 (09:00→20:41)
[2017-11-02] MEDS: BuPROPion SR 150 MG TABCR PO SCH ×2 (09:00→20:37)
[2017-11-02] MEDS: ALLOPURINOL 100 MG TAB PO SCH (09:00)
[2017-11-02] MEDS ORDERED: FUROSEMIDE INJ 20 MG in SYRINGE 0 ML IV SCH (11:00)
--- NOTE | 2017-11-02 11:27 | Pharmacy Progress Note ---
Pharmacy Glycemic Short Note 2 Date of Service Nov 02, 2017. OUTPATIENT ANTIDIABETIC REGIMEN: * Invokamet 150/500 mg BID * Glimepiride 4 mg daily * Sitagliptin 100 mg daily * Item Value Date Time Bedside Glucose 157 mg/dl H 10/31/17 1121 Bedside Glucose 130 mg/dl H 10/31/17 1706 Bedside Glucose 126 mg/dl H 10/31/172016 Bedside Glucose 111 mg/dl H 11/01/17 0744 Bedside Glucose 191 mg/dl H 11/01/17 1102 Bedside Glucose 150 mg/dl H 11/01/17 1621 Bedside Glucose 167 mg/dl H 11/01/172017 Bedside Glucose 115 mg/dl H 11/02/17 0724 ASSESSMENT: * Patient is currently receiving an average of ~50 units of insulin per day * 34 units of basal insulin * 16 units of prandial/correctional insulin but PO intake has been minimal but advancing * Risk factors for insulin resistance are decreasing over the past 24hrs * Infection is being adequately treated/Pt status improving * Dextrose containing IVF D/C * Changes needed to insulin regimen: * AM Fasting BSG = 115 mg/dl which is in goal range. No changes needed to basal insulin * Only one BSG elevated yesterday prior to lunch - but this was d/t CHO not covered at breakfast per nursing notation - not inadequate dosing parameters. No changes needed to CF/CR PLAN FOR INPATIENT GLYCEMIC CONTROL: * Continue to hold outpatient oral diabetes medications * Basal insulin: no change. Continue basal insulin of 24 units/day but equal out dosing Q12hrs. * Lantus 17 units SQ BID * Bolus insulin - no change * NovoLog per scale ACHS or Q6hrs while NPO * Goal Range: Low 110 mg/dL - High 150 mg/dL * Correction Factor: 20 mg/dL/unit * Nutritional / Prandial insulin per carb ratio of 1 unit per 8 grams CHO consumed PLAN FOR DISCHARGE: * Patient on 3+ oral agents without A1c at goal * If tolerated, Invokamet dose could be increased (max is 150 mg/1000 mg BID). Another option would be to add a once daily dose of basal insulin - would recommend Lantus (or Basaglar) vs NPH depending on insulin insulin coverage. Recommend starting dosing at 15 units qHS and increase by 2 units every 3 days for AM BSG above 150 mg/dL.
[2017-11-02 12:08] VITALS: BP 135/93; PULSE 100; TEMP 37; O2SAT 95
[2017-11-02] MEDS: INSULIN ASPART 100 UNITS/ML 3 ML PEN SQ SCH ×3 (12:15→21:32)
[2017-11-02] MEDS: CALCIUM CARBONATE 500 MG CHEWABLE PO PRN (12:15)
[2017-11-02] MEDS ORDERED: SPIRONOLACTONE 25 MG TAB PO ONE (13:49)
--- NOTE | 2017-11-02 13:53 | Cardiology Follow-Up ---
Subjective General Date of Service: Nov 02, 2017. Chief Complaint: Follow-up atrial fibrillation, edema, aortic stenosis Pt evaluation today including: conversation w/ patient, physical exam History of Present Illness The patient is a 67 year old male seen in follow-up. The patient looks and feels much improved today. When I had reassessed him yesterday afternoon atrial fibrillation with rapid ventricular rate in the range of 130-135 bpm was present, he was tired, and tachypneic. She received 40 mg of IV furosemide, and had 5.1 L of urine output until midnight last night. His fluid balance was -3.2 L therefore yesterday. Apparently overnight last night he had some difficulty. He was thinking about his job. 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 He ultimately received some lorazepam and rested well. Mendoza catheter remains in place. Telemetry reveals stable atrial fibrillation with rates in the range of 90 bpm at present. Much improved compared to yesterday. Allergies Coded Allergies: No Known Allergies (Unverified , 10/30/17) Social History Smoking Status: Former Smoker Hx Tobacco Use In Past Year?: No Hx Alcohol Use - Type And Amou: No Hx Substance Use - Type And Am: No Problem List Medical Problems: (1) Atrial fibrillation with rapid ventricular response Status: Acute (2) Ileus Status: Acute (3) Nausea Status: Acute Physical Exam Vital Signs Last Vital Signs Documentation Date Time Temp Pulse Resp B/P (MAP) Pulse Ox O2 Delivery O2 Flow Rate FiO2 11/02/17 12:08 37.0 100 18 135/93 (107) 95 Room Air 11/02/17 08:00 2.0 Physical Exam Constitutional: Level of Distress: chronically ill Head: normocephalic Neck: supple Lungs: Auscultation: no wheezing, no rales/crackles, no rhonchi Cardiovascular: Heart Auscultation: irregular rate rhythm, pertinent finding (The patient's murmur is very faint and minimally audible) Abdomen: Inspection & Palpation: soft, non-distended Extremities: pertinent finding (Venous stasis changes, 1 to borderline 2+ edema , trending toward improvement) Neurologic: Gait & Station: pertinent finding (No focal deficits) Assessment and Plan Assessment and Plan Impression: 67-year-old male 1. Critically severe aortic valve stenosis, with superimposed acute heart failure with preserved ejection fraction (HFpEF) 2. Chronic atrial fibrillation, ventricular rate mildly elevated 3. Lower extremity edema, left lower extremity superficial ulcerations Discussion/recommendations: Regarding his atrial fibrillation, will ease up on his metoprolol tartrate to 37.5 mg twice daily, with caution given severe aortic valve stenosis. Continue Pradaxa for stroke prophylaxis for now, although given his [place] severe valvular heart disease , likely cannot classify him as "nonvalvular atrial fibrillation". Will consider transition from Pradaxa to coumadin perhaps after cardiac catheterization. Continue diuresis for volume overload. Received 20 mg IV furosemide this am. Supplement potassium, add low dose aldactone. Regarding his peripheral arterial disease. He has bilateral peroneal artery disease with intact anterior tibial and posterior tibial vessels. Therefore conservative treatment is recommended. We will try to diurese him to reduce his lower extremity edema and venous congestion, and this should help with healing of his left lower leg ulcers. As the patient's hospitalization has developed, it is clear that he has symptomatic critically severe aortic valve stenosis. I had initially planned to optimize his edema and perhaps pursue diagnostic cardiac catheterization for coronary angiography down the road as an outpatient, but I think the patient is perhaps best served by having his volume status optimized here in proceeding with cardiac catheterization perhaps this admission to delineate his coronary anatomy. He will be very challenging to bring him back for an outpatient cardiac catheterization due to difficulties with his volume status. Timing of cardiothoracic surgery consultation will be determined based on his cardiac catheterization. If he is found to have high risk CAD, it may be most practical to proceed with surgical consultation sooner rather than later. Laboratory Results Last 24 Hours Test 11/01/17 16:21 11/01/17 20:18 11/02/17 07:08 11/02/17 07:24 Bedside Glucose 150 mg/dl 167 mg/dl 115 mg/dl White Blood Count 9.99 K/uL Red Blood Count 5.42 M/uL Hemoglobin 15.7 g/dL Hematocrit 47.7 % Mean Corpuscular Volume 88.0 fL Mean Corpuscular Hemoglobin 29.0 pg Mean Corpuscular Hemoglobin Concent 32.9 g/dl RDW Standard Deviation 50.7 fL RDW Coefficient of Variation 16.0 % Platelet Count 123 K/uL Mean Platelet Volume 12.4 fL Sodium Level 136 mmol/L Potassium Level 3.4 mmol/L Chloride Level 100 mmol/L Carbon Dioxide Level 29 mmol/L Anion Gap 7.0 mmol/L Blood Urea Nitrogen 18 mg/dl Creatinine 0.97 mg/dl Est Creatinine Clear Calc Drug Dose 92.4 ml/min Estimated GFR () 92.6 Estimated GFR (Non- 79.9 BUN/Creatinine Ratio 19.0 Random Glucose 103 mg/dl Calcium Level 8.8 mg/dl Magnesium Level 2.6 mg/dl Test 11/02/17 11:21 Bedside Glucose 290 mg/dl
--- NOTE | 2017-11-02 15:19 | Progress Note ---
Subjective Date of Service: Nov 02, 2017. Subjective Pt evaluation today including: conversation w/ patient, physical exam, lab review, review of studies, review of inpatient medication list Saw/examined the patient in room 230-2 His breathing has improved, heart rates have improved as well Problem List Medical Problems: (1) Atrial fibrillation with rapid ventricular response Status: Acute (2) Ileus Status: Acute (3) Nausea Status: Acute Objective Vital Signs Date Time Temp Pulse Resp B/P (MAP) Pulse Ox O2 Delivery O2 Flow Rate FiO2 11/02/17 12:08 37.0 100 18 135/93 (107) 95 Room Air 11/02/17 08:00 Room Air 2.0 Nasal Cannula 11/02/17 07:33 36.6 99 18 119/77 (91) 95 Room Air 11/02/17 03:39 36.7 73 17 120/83 (95) 95 Room Air 11/01/17 23:16 36.7 69 19 110/78 (89) 93 Room Air 11/01/17 20:00 96 Nasal Cannula 2.0 11/01/17 19:10 36.5 117 20 132/87 (102) 96 Nasal Cannula 1.0 11/01/17 17:47 136 141/77 (98) 96 Nasal Cannula 2.0 11/01/17 16:00 96 Nasal Cannula 2.0 11/01/17 15:06 36.6 118 18 111/66 (81) 96 Nasal Cannula 1.0 Physical Exam Respiratory/Chest: no respiratory distress, no accessory muscle use, + decreased breath sounds Cardiovascular: + irregularly irregular Extremities: + swelling (improved discoloration of the LLE; less warm to touch) , + pertinent finding Laboratory Results Last 24 Hours Test 11/01/17 16:21 11/01/17 20:18 11/02/17 07:08 11/02/17 07:24 Bedside Glucose 150 mg/dl 167 mg/dl 115 mg/dl White Blood Count 9.99 K/uL Red Blood Count 5.42 M/uL Hemoglobin 15.7 g/dL Hematocrit 47.7 % Mean Corpuscular Volume 88.0 fL Mean Corpuscular Hemoglobin 29.0 pg Mean Corpuscular Hemoglobin Concent 32.9 g/dl RDW Standard Deviation 50.7 fL RDW Coefficient of Variation 16.0 % Platelet Count 123 K/uL Mean Platelet Volume 12.4 fL Sodium Level 136 mmol/L Potassium Level 3.4 mmol/L Chloride Level 100 mmol/L Carbon Dioxide Level 29 mmol/L Anion Gap 7.0 mmol/L Blood Urea Nitrogen 18 mg/dl Creatinine 0.97 mg/dl Est Creatinine Clear Calc Drug Dose 92.4 ml/min Estimated GFR () 92.6 Estimated GFR (Non- 79.9 BUN/Creatinine Ratio 19.0 Random Glucose 103 mg/dl Calcium Level 8.8 mg/dl Magnesium Level 2.6 mg/dl Test 11/02/17 11:21 Bedside Glucose 290 mg/dl Assessment and Plan This is a 67 year old male with a past medical history of DM2, HTN, HLD, depression/anxiety, paroxysmal atrial fibrillation on long-term anticoagulation , hypothyroidism - presents with nausea and shortness of breath Likely Chronic Atrial Fibrillation with RVR 11/02 - metoprolol tartrate 37.5mg BID - Pradaxa for now - appreciate cardiology input; may need Coumadin due to valvular disease - may need cardiac catheterization during this admission 11/01 - appreciate cardiology input - Metoprolol was decreased today due to recent diagnosis of critically severe aortic stenosis - continue Pradaxa 10/31 - patient with a hx. of atrial fibrillation, presented with rapid ventricular response - initially started on a Cardizem drip; now back on metoprolol tartrate - continue Pradaxa for anticoagulation - appreciate cardiology input Newly Diagnosed Critically Severe Aortic Stenosis 11/02 - currently on Lasix, and Aldactone started - continue b-keyonna - may need to add JAMA-I or ARB due to DM2 11/01 - continue with Lasix as per cardiology, will likely need diuretics on discharge 10/31 - holding IVFs, changing IV abx. to PO to prevent overload - EF of around 50-55% - will need outpatient aortic valve work-up; likely surgical repair at tertiary care center Peripheral Vascular Disease LLE Wound Ulcerations 11/01 - appreciate ID input - doxycycline x 14 days - outpatient wound care input 10/31 - arterial disease noted; L peroneal artery stenosis - Dr. Rolon consulted for vascular management - once optimized, can d/c home - changed IV abx. to Doxycycline - ID consulted for further input, length of treatment, etc. Mild Ileus - spoke with GI, this likely does not represent ileus, though read as such on CT - will give clears, stop IVFs, and advance diet as tolerated DM2 - ha1c of 8.9%, not well controlled - currently on 4 oral agents as outpatient - will stop oral agents and insulin sliding scale with Lantus - appreciate glycemic control consultation Hypothyroidism - continue Synthroid DVT ppx - Pradaxa FULL CODE
[2017-11-02 16:01] VITALS: BP 113/80; PULSE 96; TEMP 37.1; O2SAT 95
[2017-11-02 19:59] VITALS: BP 110/72; PULSE 96; TEMP 37.7; O2SAT 96
[2017-11-02 23:45] VITALS: BP 111/69; PULSE 100; TEMP 36.9; O2SAT 96
[2017-11-03] MEDS: LORAZEPAM 0.5 MG TAB PO PRN (02:16)
[2017-11-03 03:45] VITALS: BP 115/83; PULSE 101; TEMP 36.6; O2SAT 96
[2017-11-03] MEDS: LEVOTHYROXINE 50 MCG TAB PO SCH (06:00)
[2017-11-03 06:11] LABS: HEMATOCRIT 47.4 % (42-52); HEMOGLOBIN 15.8 g/dL (14.0-18.0); MEAN CELL VOLUME 88.3 fL (80-100); MEAN CORPUSCULAR HEMOGLOBIN 29.4 pg (25-34); MEAN CORPUSCULAR HGB CONC 33.3 g/dl (32-36); MEAN PLATELET VOLUME 12.5 fL (7.4-10.4); PLATELET COUNT 152 K/uL (130-400); RED CELL DISTRIBUTION WIDTH CV 15.9 % (11.5-14.5); RED CELL DISTRIBUTION WIDTH SD 50.5 fL (36.4-46.3); WHITE BLOOD COUNT 9.05 K/uL (4.8-10.8)
[2017-11-03 06:27] LABS: CREATININE 0.87 mg/dl (0.60-1.40); POTASSIUM 3.8 mmol/L (3.5-5.1)
[2017-11-03 07:22] VITALS: BP 118/78; PULSE 94; TEMP 36.8; O2SAT 96
[2017-11-03] MEDS: METOPROLOL TARTRATE 25 MG TAB PO SCH ×2 (08:37→21:12)
[2017-11-03] MEDS: ALLOPURINOL 100 MG TAB PO SCH (08:37)
[2017-11-03] MEDS: GEMFIBROZIL 600 MG TAB PO SCH ×2 (08:37→21:11)
[2017-11-03] MEDS: FUROSEMIDE INJ 20 MG in SYRINGE 0 ML IV SCH (08:37)
[2017-11-03] MEDS: BuPROPion SR 150 MG TABCR PO SCH ×2 (08:37→21:11)
[2017-11-03] MEDS: SPIRONOLACTONE 25 MG TAB PO SCH (08:38)
[2017-11-03] MEDS: DABIGATRAN ELEXILATE 75 MG CAP PO SCH ×2 (08:38→21:10)
[2017-11-03] MEDS: INSULIN ASPART 100 UNITS/ML 3 ML PEN SQ SCH ×4 (08:42→21:19)
[2017-11-03] MEDS: INSULIN GLARGINE SOLOSTAR 100 UNITS/ML 3 ML PEN SC SCH ×2 (08:46→21:20)
[2017-11-03] MEDS: MAGNESIUM OXIDE 400 MG TAB PO SCH (09:00)
--- NOTE | 2017-11-03 09:19 | Pharmacy Progress Note ---
Pharmacy Glycemic Short Note 2 Date of Service Nov 03, 2017. OUTPATIENT ANTIDIABETIC REGIMEN: * Invokamet 150/500 mg BID * Glimepiride 4 mg daily * Sitagliptin 100 mg daily Item Value Date Time Bedside Glucose 157 mg/dl H 10/31/17 1121 Bedside Glucose 130 mg/dl H 10/31/17 1706 Bedside Glucose 126 mg/dl H 10/31/172016 Bedside Glucose 111 mg/dl H 11/01/17 0744 Bedside Glucose 191 mg/dl H 11/01/17 1102 Bedside Glucose 150 mg/dl H 11/01/17 1621 Bedside Glucose 167 mg/dl H 11/01/172017 Bedside Glucose 115 mg/dl H 11/02/17 0724 Bedside Glucose 290 mg/dl H 11/02/17 1121 Bedside Glucose 173 mg/dl H 11/02/17 1645 Bedside Glucose 196 mg/dl H 11/02/17 2106 Bedside Glucose 134 mg/dl H 11/03/17 0713 ASSESSMENT: * Patient is currently receiving an average of ~55 units of insulin per day * 34 units of basal insulin * 21 units of prandial/correctional insulin but PO intake has been minimal but advancing * Changes needed to insulin regimen: * AM Fasting BSG = 115 mg/dl which is in goal range. No changes needed to basal insulin * Post-prandial BSGs are elevated/BSGs rise throughout the day therefore Tighten CF/CR PLAN FOR INPATIENT GLYCEMIC CONTROL: * Continue to hold outpatient oral diabetes medications * Basal insulin: no change * Lantus 17 units SQ BID * Bolus insulin - tighten CR for better post-prandial control * NovoLog per scale ACHS or Q6hrs while NPO * Goal Range: Low 110 mg/dL - High 150 mg/dL * Correction Factor: 20 mg/dL/unit * Nutritional / Prandial insulin per carb ratio of 1 unit per 7 grams CHO consumed PLAN FOR DISCHARGE: * Patient on 3+ oral agents without A1c at goal * If tolerated, Invokamet dose could be increased (max is 150 mg/1000 mg BID). Another option would be to add a once daily dose of basal insulin - would recommend Lantus (or Basaglar) vs NPH depending on insulin insulin coverage. Recommend starting dosing at 15 units qHS and increase by 2 units every 3 days for AM BSG above 150 mg/dL. * May be able to d/c sulfonylurea once basal insulin titrated as an outpatient
[2017-11-03 11:41] VITALS: BP 119/78; PULSE 94; TEMP 36.8; O2SAT 95
--- NOTE | 2017-11-03 12:38 | Cardiology Follow-Up ---
Subjective General Date of Service: Nov 03, 2017. Chief Complaint: Follow-up atrial fibrillation, edema, aortic stenosis Pt evaluation today including: conversation w/ patient, physical exam, chart review, lab review, review of studies, conversation w/ testing consultant, review of inpatient medication list History of Present Illness The patient is a 67 year old male seen in follow-up. Edema improving. Denies shortness of breath at rest. Remains in atrial fibrillation with a heart rate ranging from 90-105 bpm on telemetry. Denies chest discomfort. Requesting order to get out of bed. Offers no other complaints. Allergies Coded Allergies: No Known Allergies (Unverified , 10/30/17) Social History Smoking Status: Former Smoker Hx Tobacco Use In Past Year?: No Hx Alcohol Use - Type And Amou: No Hx Substance Use - Type And Am: No Problem List Medical Problems: (1) Atrial fibrillation with rapid ventricular response Status: Acute (2) Ileus Status: Acute (3) Nausea Status: Acute Review of Systems Respiratory: + dyspnea on exertion, No cough, No sputum, No wheezing, No shortness of breath, No dyspnea at rest, No hemoptysis Cardiac: + edema, No chest pain, No orthopnea, No PND, No claudication, No palpitations Physical Exam Vital Signs Last Vital Signs Documentation Date Time Temp Pulse Resp B/P (MAP) Pulse Ox O2 Delivery O2 Flow Rate FiO2 11/03/17 11:41 36.8 94 20 119/78 (92) 95 Room Air 11/03/17 08:00 2.0 Physical Exam Constitutional: Level of Distress: chronically ill Head: normocephalic Neck: supple Lungs: Auscultation: no wheezing, no rales/crackles, no rhonchi Cardiovascular: Heart Auscultation: irregular rate rhythm, pertinent finding (The patient's murmur is very faint and minimally audible) Abdomen: Inspection & Palpation: soft, non-distended Extremities: pertinent finding (Venous stasis changes, 1+ bilateral pretibial edema with stasis changes.) Neurologic: Gait & Station: pertinent finding (No focal deficits) Assessment and Plan Assessment and Plan Final impression 1. Severe aortic stenosis 2. Decompensated diastolic heart failure in setting of rapid atrial fibrillation and severe aortic stenosis 2. Chronic atrial fibrillation with borderline rate control 3. Lower extremity edema, left lower extremity superficial ulcerations Discussion/recommendations: Continue intravenous diuretic therapy. Continue current dose of beta-keyonna therapy and monitor telemetry. Tentative plan for coronary angiography prior to hospital discharge in preparation for aortic valve replacement. Repeat basic metabolic panel in a.m. Will likely transition patient from Pradaxa to Coumadin post catheterization. Laboratory Results Last 24 Hours Test 11/02/17 16:45 11/02/17 21:06 11/03/17 05:38 11/03/17 07:13 Bedside Glucose 173 mg/dl 196 mg/dl 134 mg/dl White Blood Count 9.05 K/uL Red Blood Count 5.37 M/uL Hemoglobin 15.8 g/dL Hematocrit 47.4 % Mean Corpuscular Volume 88.3 fL Mean Corpuscular Hemoglobin 29.4 pg Mean Corpuscular Hemoglobin Concent 33.3 g/dl RDW Standard Deviation 50.5 fL RDW Coefficient of Variation 15.9 % Platelet Count 152 K/uL Mean Platelet Volume 12.5 fL Sodium Level 135 mmol/L Potassium Level 3.8 mmol/L Chloride Level 100 mmol/L Carbon Dioxide Level 29 mmol/L Anion Gap 6.0 mmol/L Blood Urea Nitrogen 23 mg/dl Creatinine 0.87 mg/dl Est Creatinine Clear Calc Drug Dose 102.2 ml/min Estimated GFR () 102.8 Estimated GFR (Non- 88.7 BUN/Creatinine Ratio 26.1 Random Glucose 124 mg/dl Calcium Level 9.0 mg/dl Test 11/03/17 11:38 Bedside Glucose 180 mg/dl
[2017-11-03 15:18] VITALS: BP 114/70; PULSE 96; TEMP 36.9; O2SAT 94
--- NOTE | 2017-11-03 15:27 | Progress Note ---
Subjective Date of Service: Nov 03, 2017. Subjective Pt evaluation today including: conversation w/ patient, physical exam, lab review, review of studies, review of inpatient medication list Saw/examined the patient in room 230-2 Breathing status improved Denies chest pain/palpitations Problem List Medical Problems: (1) Atrial fibrillation with rapid ventricular response Status: Acute (2) Ileus Status: Acute (3) Nausea Status: Acute Review of Systems Constitutional: No fever, No chills Respiratory: No cough, No sputum, No shortness of breath Cardiac: No chest pain Abdomen: No pain, No nausea, No vomiting, No diarrhea, No constipation, No GI bleeding Neurologic: No memory loss, No paralysis, No weakness Medications Current Inpatient Medications Medications (Trade) Dose Ordered Sig/Mamie Route Start Time Stop Time Status Last Admin Dose Admin Ioversol (Optiray 320) 125 ml UD PRN IV 10/30/17 17:15 11/03/17 17:14 Acetaminophen (Tylenol Tab) 650 mg Q4H PRN PO 10/30/17 18:30 11/29/17 18:29 11/02/17 20:43 650 MG Ondansetron HCl (Zofran Inj) 4 mg Q6H PRN IV 10/30/17 18:30 11/29/17 18:29 Miscellaneous Information (Consult Glycemic Management Pharmacy) 1 ea UD PRN N/A 10/30/17 19:06 11/29/17 19:05 Glucose (Glucose 40% Gel) 15-30 GRAMS 15 GRAMS... UD PRN PO 10/30/17 18:30 11/29/17 18:29 Glucose (Glucose Chew Tab) 4-8 Tablets 4 Tabl... UD PRN PO 10/30/17 18:30 11/29/17 18:29 Dextrose (Dextrose 50% 50ML Syringe) 25-50ML 25ML FOR ... UD PRN IV 10/30/17 18:30 11/29/17 18:29 Glucagon (Glucagon Inj) 1 mg UD PRN SQ 10/30/17 18:30 11/29/17 18:29 Carbohydrates (Carbohydrates For Hypoglycemia) 15-30 GRAMS 15 grams if BSG 54-69... UD PRN PO 10/30/17 18:30 11/29/17 18:29 Allopurinol (Zyloprim Tab) 100 mg DAILY PO 10/31/17 09:00 11/30/17 08:59 11/03/17 08:37 100 MG Bupropion HCl (Wellbutrin-Sr Tab) 150 mg BID PO 10/30/17 21:00 11/29/17 20:59 11/03/17 08:37 150 MG Dabigatran (Pradaxa Cap) 150 mg BID PO 10/30/17 21:00 11/29/17 20:59 11/03/17 08:38 150 MG Gemfibrozil (Lopid Tab) 600 mg BID PO 10/30/17 21:00 11/29/17 20:59 11/03/17 08:37 600 MG Levothyroxine Sodium (Synthroid Tab) 50 mcg DAILYBB PO 10/31/17 06:00 11/30/17 05:59 11/03/17 06:00 50 MCG Magnesium Oxide (Mag-Ox Tab) 400 mg BID PO 10/30/17 21:00 11/29/17 20:59 Future Hold 11/02/17 09:00 400 MG Insulin Aspart (novoLOG ASPART) SLIDING SCALE If C... ACHS SQ 10/31/17 17:15 11/30/17 17:14 11/03/17 12:10 10 UNITS Metoprolol Tartrate (Lopressor Tab) 37.5 mg BID PO 11/01/17 21:00 11/29/17 20:59 11/03/17 08:37 37.5 MG Furosemide 20 mg/ Syringe 2 ml @ 4 mls/min DAILY IV 11/02/17 09:00 12/02/17 08:59 11/03/17 08:37 4 MLS/MIN Calcium Carbonate (Tums Chew Tab) 500 mg QID PRN PO 11/01/17 22:45 12/01/17 22:44 11/02/17 12:15 500 MG Insulin Glargine (Lantus Solostar Pen) 17 units BID SC 11/02/17 09:00 12/02/17 08:59 11/03/17 08:46 17 UNITS Spironolactone (Aldactone Tab) 12.5 mg QAM PO 11/03/17 09:00 12/03/17 08:59 11/03/17 08:38 12.5 MG Lorazepam (Ativan Tab) 0.25 mg HS PRN PO 11/03/17 02:00 12/03/17 01:59 11/03/17 02:16 0.25 MG Objective Vital Signs Date Time Temp Pulse Resp B/P (MAP) Pulse Ox O2 Delivery O2 Flow Rate FiO2 11/03/17 11:41 36.8 94 20 119/78 (92) 95 Room Air 11/03/17 08:00 Room Air 2.0 Nasal Cannula 11/03/17 07:22 36.8 94 20 118/78 (91) 96 Room Air 11/03/17 03:45 36.6 101 16 115/83 (94) 96 Room Air 11/02/17 23:45 36.9 100 18 111/69 (83) 96 Room Air 11/02/17 20:00 Room Air 2.0 Nasal Cannula 11/02/17 19:59 37.7 96 20 110/72 (85) 96 Room Air 11/02/17 16:01 37.1 96 19 113/80 (91) 95 Room Air Physical Exam General Appearance: no apparent distress Respiratory/Chest: no respiratory distress, no accessory muscle use, + decreased breath sounds Cardiovascular: + irregularly irregular Extremities: + swelling (+1 pitting edema b/l LE; no warmth; no erythema), + pertinent finding Neurologic/Psychiatric: no motor/sensory deficits, alert, normal mood/affect Laboratory Results Last 24 Hours Test 11/02/17 16:45 11/02/17 21:06 11/03/17 05:38 11/03/17 07:13 Bedside Glucose 173 mg/dl 196 mg/dl 134 mg/dl White Blood Count 9.05 K/uL Red Blood Count 5.37 M/uL Hemoglobin 15.8 g/dL Hematocrit 47.4 % Mean Corpuscular Volume 88.3 fL Mean Corpuscular Hemoglobin 29.4 pg Mean Corpuscular Hemoglobin Concent 33.3 g/dl RDW Standard Deviation 50.5 fL RDW Coefficient of Variation 15.9 % Platelet Count 152 K/uL Mean Platelet Volume 12.5 fL Sodium Level 135 mmol/L Potassium Level 3.8 mmol/L Chloride Level 100 mmol/L Carbon Dioxide Level 29 mmol/L Anion Gap 6.0 mmol/L Blood Urea Nitrogen 23 mg/dl Creatinine 0.87 mg/dl Est Creatinine Clear Calc Drug Dose 102.2 ml/min Estimated GFR () 102.8 Estimated GFR (Non- 88.7 BUN/Creatinine Ratio 26.1 Random Glucose 124 mg/dl Calcium Level 9.0 mg/dl Test 11/03/17 11:38 Bedside Glucose 180 mg/dl Assessment and Plan This is a 67 year old male with a past medical history of DM2, HTN, HLD, depression/anxiety, paroxysmal atrial fibrillation on long-term anticoagulation , hypothyroidism - presents with nausea and shortness of breath Likely Chronic Atrial Fibrillation with RVR 11/03 - metoprolol 37.5mg BID - will likely change Pradaxa to Coumadin post-cath 11/02 - metoprolol tartrate 37.5mg BID - Pradaxa for now - appreciate cardiology input; may need Coumadin due to valvular disease - may need cardiac catheterization during this admission 11/01 - appreciate cardiology input - Metoprolol was decreased today due to recent diagnosis of critically severe aortic stenosis - continue Pradaxa 10/31 - patient with a hx. of atrial fibrillation, presented with rapid ventricular response - initially started on a Cardizem drip; now back on metoprolol tartrate - continue Pradaxa for anticoagulation - appreciate cardiology input Newly Diagnosed Critically Severe Aortic Stenosis 11/03 - continue IV Lasix, continue Aldactone - will eventually need to have a cardiac cath 11/02 - currently on Lasix, and Aldactone started - continue b-keyonna - may need to add JAMA-I or ARB due to DM2 11/01 - continue with Lasix as per cardiology, will likely need diuretics on discharge 10/31 - holding IVFs, changing IV abx. to PO to prevent overload - EF of around 50-55% - will need outpatient aortic valve work-up; likely surgical repair at tertiary care center Peripheral Vascular Disease LLE Wound Ulcerations 11/01 - appreciate ID input - doxycycline x 14 days - outpatient wound care input 10/31 - arterial disease noted; L peroneal artery stenosis - Dr. Rolon consulted for vascular management - once optimized, can d/c home - changed IV abx. to Doxycycline - ID consulted for further input, length of treatment, etc. Mild Ileus - spoke with GI, this likely does not represent ileus, though read as such on CT - will give clears, stop IVFs, and advance diet as tolerated DM2 - ha1c of 8.9%, not well controlled - currently on 4 oral agents as outpatient - will stop oral agents and insulin sliding scale with Lantus - appreciate glycemic control consultation Hypothyroidism - continue Synthroid DVT ppx - Pradaxa FULL CODE
[2017-11-03 19:15] VITALS: BP 130/85; PULSE 94; TEMP 37.3; O2SAT 94
[2017-11-03 23:40] VITALS: BP 119/74; PULSE 100; TEMP 36.6; O2SAT 95
[2017-11-04] VITALS (7 sets, daily range): BP systolic 112–128; BP diastolic 51–84; PULSE 75–97; TEMP 36.5–36.9; O2SAT 95–98
[2017-11-04] MEDS: LEVOTHYROXINE 50 MCG TAB PO SCH (06:05)
[2017-11-04 06:28] LABS: HEMATOCRIT 48.2 % (42-52); MEAN CORPUSCULAR HEMOGLOBIN 29.2 pg (25-34); MEAN CORPUSCULAR HGB CONC 33.2 g/dl (32-36); MEAN PLATELET VOLUME 12.2 fL (7.4-10.4); PLATELET COUNT 176 K/uL (130-400); RED CELL DISTRIBUTION WIDTH CV 15.7 % (11.5-14.5); WHITE BLOOD COUNT 10.27 K/uL (4.8-10.8)
[2017-11-04 07:02] LABS: CALCIUM 9.1 mg/dl (8.5-10.1); CREATININE 0.76 mg/dl (0.60-1.40); POTASSIUM 3.6 mmol/L (3.5-5.1)
[2017-11-04] MEDS: GEMFIBROZIL 600 MG TAB PO SCH ×2 (07:35→20:42)
[2017-11-04] MEDS: METOPROLOL TARTRATE 25 MG TAB PO SCH ×2 (07:36→20:42)
[2017-11-04] MEDS: ALLOPURINOL 100 MG TAB PO SCH (07:37)
[2017-11-04] MEDS: CALCIUM CARBONATE 500 MG CHEWABLE PO PRN (07:37)
[2017-11-04] MEDS: BuPROPion SR 150 MG TABCR PO SCH ×2 (07:37→20:42)
[2017-11-04] MEDS: SPIRONOLACTONE 25 MG TAB PO SCH (07:38)
[2017-11-04] MEDS: DABIGATRAN ELEXILATE 75 MG CAP PO SCH ×2 (07:39→20:43)
[2017-11-04] MEDS: INSULIN ASPART 100 UNITS/ML 3 ML PEN SQ SCH ×4 (07:51→20:44)
[2017-11-04] MEDS: INSULIN GLARGINE SOLOSTAR 100 UNITS/ML 3 ML PEN SC SCH ×2 (07:52→20:45)
[2017-11-04] MEDS: FUROSEMIDE INJ 20 MG in SYRINGE 0 ML IV SCH (09:08)
--- NOTE | 2017-11-04 10:43 | Cardiology Follow-Up ---
Subjective General Date of Service: Nov 04, 2017. Chief Complaint: Follow-up atrial fibrillation, edema, aortic stenosis Pt evaluation today including: conversation w/ patient, physical exam, chart review, lab review, review of studies, review of inpatient medication list History of Present Illness The patient is a 67 year old male seen in follow-up. Edema improving. Notes shortness of breath with exertion. No orthopnea or PND. Denies chest discomfort. Telemetry demonstrates atrial fibrillation averaging approximately 90-100 bpm. Denies palpitations. Fluid balance negative approximately 2.2 L over the past 24 hours. Creatinine within normal limits and trending downward slightly. Tolerating diet and medications. Offers no complaints at this time. Allergies Coded Allergies: No Known Allergies (Unverified , 10/30/17) Social History Smoking Status: Former Smoker Hx Tobacco Use In Past Year?: No Hx Alcohol Use - Type And Amou: No Hx Substance Use - Type And Am: No Problem List Medical Problems: (1) Atrial fibrillation with rapid ventricular response Status: Acute (2) Ileus Status: Acute (3) Nausea Status: Acute Review of Systems Respiratory: + dyspnea on exertion, No cough, No sputum, No wheezing, No shortness of breath, No dyspnea at rest, No hemoptysis Cardiac: + edema, No chest pain, No orthopnea, No PND, No claudication, No palpitations Physical Exam Vital Signs Last Vital Signs Documentation Date Time Temp Pulse Resp B/P (MAP) Pulse Ox O2 Delivery O2 Flow Rate FiO2 11/04/17 08:00 Room Air 11/04/17 07:19 36.6 97 20 121/84 (96) 95 11/03/17 08:00 2.0 Physical Exam Constitutional: Level of Distress: chronically ill Head: normocephalic Neck: supple Lungs: Auscultation: no wheezing, no rhonchi, pertinent finding (Decreased breath sounds at the bases with scant crackles) Cardiovascular: Heart Auscultation: irregular rate rhythm, pertinent finding (The patient's murmur is very faint and minimally audible) Abdomen: Inspection & Palpation: soft, non-distended Extremities: pertinent finding (Venous stasis changes, 1+ bilateral pretibial edema with stasis changes.) Neurologic: Gait & Station: pertinent finding (No focal deficits) Assessment and Plan Assessment and Plan Final impression 1. Severe aortic stenosis 2. Decompensated diastolic heart failure in setting of rapid atrial fibrillation and severe aortic stenosis 2. Chronic atrial fibrillation with borderline rate control 3. Lower extremity edema, left lower extremity superficial ulcerations Discussion/recommendations: Continue intravenous diuretic therapy. Continue current dose of beta-keyonna therapy and monitor telemetry. Hold Pradaxa in a.m. pending clinical assessment with tentative plans for cardiac catheterization by mid week. Repeat basic metabolic panel in a.m. Will likely transition patient from Pradaxa to Coumadin post catheterization. Laboratory Results Last 24 Hours Test 11/03/17 11:38 11/03/17 16:18 11/03/17 20:28 11/04/17 05:30 Bedside Glucose 180 mg/dl 156 mg/dl 172 mg/dl White Blood Count 10.27 K/uL Red Blood Count 5.48 M/uL Hemoglobin 16.0 g/dL Hematocrit 48.2 % Mean Corpuscular Volume 88.0 fL Mean Corpuscular Hemoglobin 29.2 pg Mean Corpuscular Hemoglobin Concent 33.2 g/dl RDW Standard Deviation 50.0 fL RDW Coefficient of Variation 15.7 % Platelet Count 176 K/uL Mean Platelet Volume 12.2 fL Sodium Level 137 mmol/L Potassium Level 3.6 mmol/L Chloride Level 102 mmol/L Carbon Dioxide Level 25 mmol/L Anion Gap 10.0 mmol/L Blood Urea Nitrogen 21 mg/dl Creatinine 0.76 mg/dl Est Creatinine Clear Calc Drug Dose 116.5 ml/min Estimated GFR () 108.7 Estimated GFR (Non- 93.7 BUN/Creatinine Ratio 27.1 Random Glucose 133 mg/dl Calcium Level 9.1 mg/dl Magnesium Level 2.2 mg/dl Test 11/04/17 07:33 Bedside Glucose 138 mg/dl
--- NOTE | 2017-11-04 14:02 | Progress Note ---
Internal Med Progress Note Date of Service: Nov 04, 2017. Provider Documentation: SUBJECTIVE: The patient was seen and examined in telemetry unit He has significant medical history including atrial fibrillation and severe aortic stenosis He was admitted with them left leg cellulitis with CHF and severe aortic stenosis Feels a lot better and denies any symptoms Leg swelling has improved a lot He is waiting for cardiac cath OBJECTIVE: Vital Signs-as noted below Exam: General-no apparent distress Eyes-normal ENT-normal Neck-supple Lungs-clear to auscultate bilaterally with minimal crackles at the bases Heart-irregular, soft aortic sound, difficult to feel for any murmur Abdomen-benign, soft, nontender Extremities-chronic skin changes with chronic edema bilaterally No evidence of cellulitis in left leg and no ulceration 2 healed ulcerated area over the hooks Neuro-alert, awake and oriented 3 No focal neuro deficit appreciated Lab data as noted below. ASSESSMENT & PLAN: This is a 67 year old male with a past medical history of DM2, HTN, HLD, depression/anxiety, paroxysmal atrial fibrillation on long-term anticoagulation , hypothyroidism - presents with nausea and shortness of breath Likely Chronic Atrial Fibrillation with RVR - patient with a hx. of atrial fibrillation, presented with rapid ventricular response - initially started on a Cardizem drip; now back on metoprolol tartrate -Continue Pradaxa for now and adjust as needed for any procedure - appreciate cardiology input -Clinically a lot better -Denies any symptoms -Waiting for cardiac cath Newly Diagnosed Critically Severe Aortic Stenosis -Containing strict intake output - EF of around 50-55% - will need outpatient aortic valve work-up; likely surgical repair at tertiary care center -We will go for cardiac cath in a day or 2, preop evaluation for possible aortic valve replacement Decompensated diastolic heart failure in setting of rapid atrial fibrillation and severe aortic stenosis Receiving IV Lasix initially with good results Leg swelling is much better We will continue the same for now Peripheral Vascular Disease LLE Wound Ulcerations - arterial disease noted; L peroneal artery stenosis - Dr. Rolon consulted for vascular management - once optimized, can d/c home - changed IV abx. to Doxycycline - ID consulted for further input, antibiotic for 14 days in total Mild Ileus - spoke with GI, this likely does not represent ileus, though read as such on CT - will give clears, stop IVFs, and advance diet as tolerated DM2 - ha1c of 8.9%, not well controlled - currently on 4 oral agents as outpatient - will stop oral agents and insulin sliding scale with Lantus - appreciate glycemic control consultation Hypothyroidism - continue Synthroid DVT ppx - Pradaxa FULL CODE Vital Signs: Date Time Temp Pulse Resp B/P (MAP) Pulse Ox O2 Delivery O2 Flow Rate FiO2 11/04/17 11:01 36.8 79 20 126/80 (95) 97 Room Air 11/04/17 08:00 Room Air 11/04/17 07:19 36.6 97 20 121/84 (96) 95 Room Air 11/04/17 06:55 36.9 92 18 112/51 (71) 97 Room Air 11/04/17 03:08 36.9 91 18 117/83 (94) 97 Room Air 11/04/17 00:05 Room Air 11/03/17 23:40 36.6 100 18 119/74 (89) 95 Room Air 11/03/17 20:00 Room Air 11/03/17 19:15 37.3 94 20 130/85 (100) 94 Room Air 11/03/17 15:18 36.9 96 18 114/70 (85) 94 Room Air Lab Results: Results Past 24 Hours Test 11/03/17 16:18 11/03/17 20:28 11/04/17 05:30 11/04/17 07:33 Range/Units Bedside Glucose 156 172 138 70-99 mg/dl White Blood Count 10.27 4.8-10.8 K/uL Red Blood Count 5.48 4.7-6.1 M/uL Hemoglobin 16.0 14.0-18.0 g/dL Hematocrit 48.2 42-52 % Mean Corpuscular Volume 88.0 80-100 fL Mean Corpuscular Hemoglobin 29.2 25-34 pg Mean Corpuscular Hemoglobin Concent 33.2 32-36 g/dl RDW Standard Deviation 50.0 36.4-46.3 fL RDW Coefficient of Variation 15.7 11.5-14.5 % Platelet Count 176 130-400 K/uL Mean Platelet Volume 12.2 7.4-10.4 fL Sodium Level 137 136-145 mmol/L Potassium Level 3.6 3.5-5.1 mmol/L Chloride Level 102 98-107 mmol/L Carbon Dioxide Level 25 21-32 mmol/L Anion Gap 10.0 3-11 mmol/L Blood Urea Nitrogen 21 7-18 mg/dl Creatinine 0.76 0.60-1.40 mg/dl Est Creatinine Clear Calc Drug Dose 116.5 ml/min Estimated GFR () 108.7 Estimated GFR (Non- 93.7 BUN/Creatinine Ratio 27.1 10-20 Random Glucose 133 70-99 mg/dl Calcium Level 9.1 8.5-10.1 mg/dl Magnesium Level 2.2 1.8-2.4 mg/dl Test 11/04/17 10:59 Range/Units Bedside Glucose 169 70-99 mg/dl
[2017-11-04] MEDS: LORAZEPAM 0.5 MG TAB PO PRN (23:05)
[2017-11-05 04:08] VITALS: BP 121/79; PULSE 99; TEMP 36.5; O2SAT 98
[2017-11-05] MEDS: LEVOTHYROXINE 50 MCG TAB PO SCH (06:30)
[2017-11-05 07:26] LABS: HEMATOCRIT 46.6 % (42-52); HEMOGLOBIN 15.7 g/dL (14.0-18.0); MEAN CELL VOLUME 88.3 fL (80-100); MEAN CORPUSCULAR HEMOGLOBIN 29.7 pg (25-34); MEAN CORPUSCULAR HGB CONC 33.7 g/dl (32-36); PLATELET COUNT 189 K/uL (130-400); RED CELL DISTRIBUTION WIDTH CV 15.9 % (11.5-14.5); RED CELL DISTRIBUTION WIDTH SD 51.1 fL (36.4-46.3); WHITE BLOOD COUNT 9.81 K/uL (4.8-10.8)
[2017-11-05 07:39] VITALS: BP 139/82; PULSE 89; TEMP 36.6; O2SAT 98
[2017-11-05 07:55] LABS: CALCIUM 9.2 mg/dl (8.5-10.1); CREATININE 0.76 mg/dl (0.60-1.40); PHOSPHORUS 3.1 mg/dl (2.5-4.9); POTASSIUM 3.8 mmol/L (3.5-5.1)
[2017-11-05] MEDS: FUROSEMIDE INJ 20 MG in SYRINGE 0 ML IV SCH (08:07)
[2017-11-05] MEDS: BuPROPion SR 150 MG TABCR PO SCH ×2 (08:07→19:35)
[2017-11-05] MEDS: ALLOPURINOL 100 MG TAB PO SCH (08:07)
[2017-11-05] MEDS: METOPROLOL TARTRATE 25 MG TAB PO SCH ×2 (08:08→19:36)
[2017-11-05] MEDS: GEMFIBROZIL 600 MG TAB PO SCH ×2 (08:08→19:35)
[2017-11-05] MEDS: SPIRONOLACTONE 25 MG TAB PO SCH (08:08)
[2017-11-05] MEDS: INSULIN ASPART 100 UNITS/ML 3 ML PEN SQ SCH ×4 (08:11→20:42)
[2017-11-05] MEDS: INSULIN GLARGINE SOLOSTAR 100 UNITS/ML 3 ML PEN SC SCH ×2 (08:11→20:46)
--- NOTE | 2017-11-05 09:41 | Cardiology Follow-Up ---
Subjective General Date of Service: Nov 05, 2017. Chief Complaint: Follow-up atrial fibrillation, edema, aortic stenosis Pt evaluation today including: conversation w/ patient, physical exam, chart review, lab review, review of studies, conversation w/ community health consultant, review of inpatient medication list History of Present Illness The patient is a 67 year old male seen in follow-up. Respiratory status improving. Atrial fibrillation with controlled ventricular response on telemetry. Fluid balance negative an additional 2 L. Renal function remained stable. Denies chest discomfort or heaviness. No orthopnea or PND. Requesting removal of Mendoza catheter. Allergies Coded Allergies: No Known Allergies (Unverified , 10/30/17) Social History Smoking Status: Former Smoker Hx Tobacco Use In Past Year?: No Hx Alcohol Use - Type And Amou: No Hx Substance Use - Type And Am: No Problem List Medical Problems: (1) Atrial fibrillation with rapid ventricular response Status: Acute (2) Ileus Status: Acute (3) Nausea Status: Acute Review of Systems Respiratory: + shortness of breath, + dyspnea on exertion, No cough, No sputum , No wheezing, No dyspnea at rest, No hemoptysis Cardiac: + edema, No chest pain, No orthopnea, No PND, No claudication, No palpitations Physical Exam Vital Signs Last Vital Signs Documentation Date Time Temp Pulse Resp B/P (MAP) Pulse Ox O2 Delivery O2 Flow Rate FiO2 11/05/17 07:39 36.6 89 20 139/82 (101) 98 Room Air 11/03/17 08:00 2.0 Physical Exam Constitutional: Level of Distress: chronically ill Head: normocephalic Neck: supple Lungs: Auscultation: no wheezing, no rhonchi, pertinent finding (Decreased breath sounds at the bases with scant crackles) Cardiovascular: Heart Auscultation: irregular rate rhythm, pertinent finding (The patient's murmur is very faint and minimally audible) Abdomen: Inspection & Palpation: soft, non-distended Extremities: pertinent finding (Venous stasis changes, 1+ bilateral pretibial edema with stasis changes.) Neurologic: Gait & Station: pertinent finding (No focal deficits) Assessment and Plan Assessment and Plan Final impression 1. Severe aortic stenosis 2. Decompensated diastolic heart failure in setting of rapid atrial fibrillation and severe aortic stenosis 2. Chronic atrial fibrillation -rate controlled and chronically anticoagulated with Pradaxa 3. Lower extremity edema, left lower extremity superficial ulcerations Discussion/recommendations: Continue intravenous diuretic therapy. Discontinue Mendoza catheter. Continue current dose of beta-keyonna therapy and monitor telemetry. Hold Pradaxa in a.m. pending clinical assessment with tentative plans for cardiac catheterization by mid week. Repeat basic metabolic panel in a.m. Will likely transition patient from Pradaxa to Coumadin post catheterization. Laboratory Results Last 24 Hours Test 11/04/17 10:59 11/04/17 16:03 11/04/17 20:04 11/05/17 06:47 Bedside Glucose 169 mg/dl 200 mg/dl 157 mg/dl White Blood Count 9.81 K/uL Red Blood Count 5.28 M/uL Hemoglobin 15.7 g/dL Hematocrit 46.6 % Mean Corpuscular Volume 88.3 fL Mean Corpuscular Hemoglobin 29.7 pg Mean Corpuscular Hemoglobin Concent 33.7 g/dl RDW Standard Deviation 51.1 fL RDW Coefficient of Variation 15.9 % Platelet Count 189 K/uL Mean Platelet Volume 12.0 fL Sodium Level 139 mmol/L Potassium Level 3.8 mmol/L Chloride Level 103 mmol/L Carbon Dioxide Level 27 mmol/L Anion Gap 8.0 mmol/L Blood Urea Nitrogen 17 mg/dl Creatinine 0.76 mg/dl Est Creatinine Clear Calc Drug Dose 116.7 ml/min Estimated GFR () 108.7 Estimated GFR (Non- 93.7 BUN/Creatinine Ratio 22.5 Random Glucose 128 mg/dl Calcium Level 9.2 mg/dl Phosphorus Level 3.1 mg/dl Magnesium Level 2.1 mg/dl Test 11/05/17 07:15 Bedside Glucose 135 mg/dl
[2017-11-05] MEDS ORDERED: DABIGATRAN ELEXILATE 75 MG CAP PO ONE (09:45)
[2017-11-05] MEDS: DABIGATRAN ELEXILATE 75 MG CAP PO SCH (10:23)
[2017-11-05 11:40] VITALS: BP 131/84; PULSE 85; TEMP 36.6; O2SAT 98
[2017-11-05] MEDS ORDERED: DOXYCYCLINE HYCLATE 100 MG CAP PO ONE (13:30)
--- NOTE | 2017-11-05 14:49 | Progress Note ---
Internal Med Progress Note Date of Service: Nov 05, 2017. Provider Documentation: SUBJECTIVE: The patient was seen and examined in telemetry unit He has significant medical history including atrial fibrillation and severe aortic stenosis He was admitted with them left leg cellulitis with CHF and severe aortic stenosis Feels a lot better and denies any symptoms Leg swelling has improved a lot He is waiting for cardiac cath 11/05: Denies any symptoms today except some increased irritation involving the catheter clinically a lot better With much improved leg swelling Left leg wound is better with minimal drainage but no cellulitis OBJECTIVE: Vital Signs-as noted below Exam: General-no apparent distress Eyes-normal ENT-normal Neck-supple Lungs-clear to auscultate bilaterally with minimal crackles at the bases Heart-irregular, soft aortic sound, difficult to feel for any murmur Abdomen-benign, soft, nontender Extremities-chronic skin changes with chronic edema bilaterally No evidence of cellulitis in left leg and no ulceration 2 healed ulcerated area over the hooks Neuro-alert, awake and oriented 3 No focal neuro deficit appreciated Lab data as noted below. ASSESSMENT & PLAN: This is a 67 year old male with a past medical history of DM2, HTN, HLD, depression/anxiety, paroxysmal atrial fibrillation on long-term anticoagulation , hypothyroidism - presents with nausea and shortness of breath Likely Chronic Atrial Fibrillation with RVR - patient with a hx. of atrial fibrillation, presented with rapid ventricular response - initially started on a Cardizem drip; now back on metoprolol tartrate -Continue Pradaxa for now and adjust as needed for any procedure - appreciate cardiology input -Clinically a lot better, denies any symptoms -Waiting for cardiac cath-tomorrow Newly Diagnosed Critically Severe Aortic Stenosis -Containing strict intake output - EF of around 50-55% - will need outpatient aortic valve work-up; likely surgical repair at tertiary care center -We will go for cardiac cath in a day or 2, preop evaluation for possible aortic valve replacement -Cardiac cath tomorrow Decompensated diastolic heart failure in setting of rapid atrial fibrillation and severe aortic stenosis Receiving IV Lasix initially with good results Leg swelling is much better We will continue the same for now Has been diuresing quite well Peripheral Vascular Disease LLE Wound Ulcerations - arterial disease noted; L peroneal artery stenosis - Dr. Rolon consulted for vascular management - once optimized, can d/c home - changed IV abx. to Doxycycline - ID consulted for further input, antibiotic for 14 days in total -Restarted doxycycline and to continue 14 days of antibiotic and total -Left leg wound is much better Mild Ileus - spoke with GI, this likely does not represent ileus, though read as such on CT - will give clears, stop IVFs, and advance diet as tolerated -No acute issue DM2 - ha1c of 8.9%, not well controlled - currently on 4 oral agents as outpatient - will stop oral agents and insulin sliding scale with Lantus - appreciate glycemic control consultation Hypothyroidism - continue Synthroid DVT ppx - Pradaxa FULL CODE Vital Signs: Date Time Temp Pulse Resp B/P (MAP) Pulse Ox O2 Delivery O2 Flow Rate FiO2 11/05/17 11:40 36.6 85 19 131/84 (100) 98 Room Air 11/05/17 08:00 Room Air 11/05/17 07:39 36.6 89 20 139/82 (101) 98 Room Air 11/05/17 04:08 36.5 99 20 121/79 (93) 98 Room Air 11/04/17 23:41 36.5 75 19 128/70 (89) 98 Room Air 11/04/17 20:00 Room Air 11/04/17 19:03 36.8 92 18 120/84 (96) 98 11/04/17 16:00 Room Air 11/04/17 15:10 36.8 91 18 117/84 (95) 97 Lab Results: Results Past 24 Hours Test 11/04/17 16:03 11/04/17 20:04 11/05/17 06:47 11/05/17 07:15 Range/Units Bedside Glucose 200 157 135 70-99 mg/dl White Blood Count 9.81 4.8-10.8 K/uL Red Blood Count 5.28 4.7-6.1 M/uL Hemoglobin 15.7 14.0-18.0 g/dL Hematocrit 46.6 42-52 % Mean Corpuscular Volume 88.3 80-100 fL Mean Corpuscular Hemoglobin 29.7 25-34 pg Mean Corpuscular Hemoglobin Concent 33.7 32-36 g/dl RDW Standard Deviation 51.1 36.4-46.3 fL RDW Coefficient of Variation 15.9 11.5-14.5 % Platelet Count 189 130-400 K/uL Mean Platelet Volume 12.0 7.4-10.4 fL Sodium Level 139 136-145 mmol/L Potassium Level 3.8 3.5-5.1 mmol/L Chloride Level 103 98-107 mmol/L Carbon Dioxide Level 27 21-32 mmol/L Anion Gap 8.0 3-11 mmol/L Blood Urea Nitrogen 17 7-18 mg/dl Creatinine 0.76 0.60-1.40 mg/dl Est Creatinine Clear Calc Drug Dose 116.7 ml/min Estimated GFR () 108.7 Estimated GFR (Non- 93.7 BUN/Creatinine Ratio 22.5 10-20 Random Glucose 128 70-99 mg/dl Calcium Level 9.2 8.5-10.1 mg/dl Phosphorus Level 3.1 2.5-4.9 mg/dl Magnesium Level 2.1 1.8-2.4 mg/dl
[2017-11-05 15:25] VITALS: BP 115/77; PULSE 78; TEMP 37; O2SAT 97
[2017-11-05 19:30] VITALS: BP 116/73; PULSE 86; TEMP 36.9; O2SAT 97
[2017-11-05] MEDS: DOXYCYCLINE HYCLATE 100 MG CAP PO SCH (19:37)
[2017-11-05 23:33] VITALS: BP 126/79; PULSE 79; TEMP 36.6; O2SAT 98
[2017-11-06] VITALS (7 sets, daily range): BP systolic 100–134; BP diastolic 51–84; PULSE 68–79; TEMP 36.7–37.1; O2SAT 93–98
[2017-11-06] MEDS: LEVOTHYROXINE 50 MCG TAB PO SCH (07:05)
[2017-11-06] MEDS: METOPROLOL TARTRATE 25 MG TAB PO SCH ×2 (07:22→21:12)
[2017-11-06] MEDS: ALLOPURINOL 100 MG TAB PO SCH (07:22)
[2017-11-06] MEDS: BuPROPion SR 150 MG TABCR PO SCH ×2 (07:23→21:10)
[2017-11-06] MEDS: DOXYCYCLINE HYCLATE 100 MG CAP PO SCH ×2 (07:24→21:12)
[2017-11-06] MEDS: SPIRONOLACTONE 25 MG TAB PO SCH (07:24)
[2017-11-06] MEDS: GEMFIBROZIL 600 MG TAB PO SCH ×2 (07:24→21:11)
[2017-11-06] MEDS: INSULIN GLARGINE SOLOSTAR 100 UNITS/ML 3 ML PEN SC SCH ×2 (07:28→21:16)
[2017-11-06] MEDS: FUROSEMIDE INJ 20 MG in SYRINGE 0 ML IV SCH (07:28)
[2017-11-06] MEDS: INSULIN ASPART 100 UNITS/ML 3 ML PEN SQ SCH ×4 (08:02→21:15)
--- NOTE | 2017-11-06 09:05 | Clinical Documentation Query ---
CLINICAL DOCUMENTATION QUERY 59 yo male admitted with paroxysmal atrial fibrillation with rapid ventricular rate. Echo showed moderate concentric left ventricular hypertrophy and EF = 50-55%. Patient was treated with Lasix IV. Cardiology impression lists "decompensated diastolic heart failure". In your clinical opinion is this patient being managed for: ( + ) Acute diastolic (congestive) heart failure ( ) Not Agree ( ) Other explanation of clinical findings (No explanation is considered a No Response) ( ) Unable to determine ( ) Need to Discuss (Phone CDS or qliq) (No discussion is considered a No Response) The medical record reflects the following clinical findings, treatment, and risk factors. Clinical Indicators: As above, crackles bilateral lung bases, lower extremity edema Treatment: Lasix IV, Cardiology consult, I&O, telemetry, echo Risk Factors: Chronic afib with RVR, critically severe aortic stenosis Please clarify and document your clinical opinion in the progress notes and discharge summary. Terms such as "probable", "suspected", "likely", "questionable", "possible", or "still to be ruled out" are acceptable. IF IN AGREEMENT, YOU MUST DOCUMENT ABOVE DIAGNOSTIC STATEMENT IN DAILY PROGRESS NOTES AND DISCHARGE SUMMARY. This document is not part of the patient's record. Thank You, Inés Marc RN, MSN [phone]
[2017-11-06 09:28] LABS: CALCIUM 9.3 mg/dl (8.5-10.1); CREATININE 0.89 mg/dl (0.60-1.40); POTASSIUM 4.1 mmol/L (3.5-5.1)
--- NOTE | 2017-11-06 10:08 | Cardiology Follow-Up ---
Subjective General Date of Service: Nov 06, 2017. Chief Complaint: Follow-up atrial fibrillation, edema, aortic stenosis Pt evaluation today including: conversation w/ patient, physical exam, chart review, lab review, review of studies, review of inpatient medication list History of Present Illness The patient is a 67 year old male seen in follow-up. Denies shortness of breath , orthopnea, or PND. Rate controlled atrial fibrillation on telemetry. Renal function remained stable. Allergies Coded Allergies: No Known Allergies (Unverified , 10/30/17) Social History Smoking Status: Former Smoker Hx Tobacco Use In Past Year?: No Hx Alcohol Use - Type And Amou: No Hx Substance Use - Type And Am: No Problem List Medical Problems: (1) Atrial fibrillation with rapid ventricular response Status: Acute (2) Ileus Status: Acute (3) Nausea Status: Acute Review of Systems Respiratory: + dyspnea on exertion, No cough, No wheezing, No shortness of breath, No dyspnea at rest, No hemoptysis Cardiac: + edema, No chest pain, No orthopnea, No PND, No claudication, No palpitations Physical Exam Vital Signs Last Vital Signs Documentation Date Time Temp Pulse Resp B/P (MAP) Pulse Ox O2 Delivery O2 Flow Rate FiO2 11/06/17 08:00 97 Room Air 11/06/17 06:55 36.7 78 18 114/76 (89) 11/03/17 08:00 2.0 Physical Exam Constitutional: Level of Distress: chronically ill Head: normocephalic Neck: supple Lungs: Auscultation: no wheezing, no rhonchi, pertinent finding (Decreased breath sounds at the bases with scant crackles) Cardiovascular: Heart Auscultation: irregular rate rhythm, pertinent finding (The patient's murmur is very faint and minimally audible) Abdomen: Inspection & Palpation: soft, non-distended Extremities: pertinent finding (Venous stasis changes, 1+ bilateral pretibial edema with stasis changes.) Neurologic: Gait & Station: pertinent finding (No focal deficits) Assessment and Plan Assessment and Plan Final impression 1. Severe aortic stenosis 2. Decompensated diastolic heart failure in setting of rapid atrial fibrillation and severe aortic stenosis -Volume status improved 2. Chronic atrial fibrillation - rate controlled and chronically anticoagulated with Pradaxa 3. Lower extremity edema, left lower extremity superficial ulcerations Discussion/recommendations: Hold Lasix and Pradaxa in anticipation of coronary angiography tomorrow. The risks, benefits, and alternatives to procedure were discussed with patient at length. He is agreeable. Continue current dose of beta-keyonna therapy. Repeat basic metabolic panel in a.m. Plan to transition from Pradaxa to Coumadin post catheterization. Laboratory Results Last 24 Hours Test 11/05/17 11:19 11/05/17 16:05 11/05/17 20:12 11/06/17 06:54 Bedside Glucose 165 mg/dl 122 mg/dl 131 mg/dl 135 mg/dl Test 11/06/17 08:39 Sodium Level 137 mmol/L Potassium Level 4.1 mmol/L Chloride Level 103 mmol/L Carbon Dioxide Level 24 mmol/L Anion Gap 9.0 mmol/L Blood Urea Nitrogen 19 mg/dl Creatinine 0.89 mg/dl Est Creatinine Clear Calc Drug Dose 100.3 ml/min Estimated GFR () 101.8 Estimated GFR (Non- 87.9 BUN/Creatinine Ratio 20.7 Random Glucose 211 mg/dl Calcium Level 9.3 mg/dl
--- NOTE | 2017-11-06 13:50 | Pharmacy Progress Note ---
Pharmacy Glycemic Short Note 2 Date of Service Nov 06, 2017. OUTPATIENT ANTIDIABETIC REGIMEN: * Invokamet 150/500 mg BID * Glimepiride 4 mg daily * Sitagliptin 100 mg daily * HbA1c: 8.9% (10/31/17) ASSESSMENT: * Patient is currently receiving an average of ~55 units of insulin per day * 34 units of basal insulin * ~20 units of prandial/correctional insulin * Pt will be NPO after midnight for cath tomorrow * Changes needed to insulin regimen: * no changes required at this time (anticipate that temporary NPO status will not require changes) PLAN FOR INPATIENT GLYCEMIC CONTROL: * Continue to hold outpatient oral diabetes medications * Basal insulin: no change * Lantus 17 units SQ BID * Bolus insulin - no change * NovoLog per scale ACHS or Q6hrs while NPO * Goal Range: Low 110 mg/dL - High 150 mg/dL * Correction Factor: 20 mg/dL/unit * Nutritional / Prandial insulin per carb ratio of 1 unit per 7 grams CHO consumed PLAN FOR DISCHARGE: * Patient on 3+ oral agents without A1c at goal * If tolerated, Invokamet dose could be increased (max is 150 mg/1000 mg BID). Another option would be to add a once daily dose of basal insulin - would recommend Lantus (or Basaglar) vs NPH depending on insulin insulin coverage. Recommend starting dosing at 15 units qHS and increase by 2 units every 3 days for AM BSG above 150 mg/dL. * May be able to d/c sulfonylurea once basal insulin titrated as an outpatient
--- NOTE | 2017-11-06 15:28 | Progress Note ---
Internal Med Progress Note Date of Service: Nov 06, 2017. Provider Documentation: SUBJECTIVE: The patient was seen and examined in telemetry unit He has significant medical history including atrial fibrillation and severe aortic stenosis He was admitted with them left leg cellulitis with CHF and severe aortic stenosis Feels a lot better and denies any symptoms Leg swelling has improved a lot He is waiting for cardiac cath 11/05: Denies any symptoms today except some increased irritation involving the catheter clinically a lot better With much improved leg swelling Left leg wound is better with minimal drainage but no cellulitis 11/06 No acute symptoms Leg swelling is much better Wound is looking better to Awaiting cardiac cath tomorrow OBJECTIVE: Vital Signs-as noted below Exam: General-no apparent distress Eyes-normal ENT-normal Neck-supple Lungs-clear to auscultate bilaterally with minimal crackles at the bases Heart-irregular, soft aortic sound, difficult to feel for any murmur Abdomen-benign, soft, nontender Extremities-chronic skin changes with chronic edema bilaterally-edema is much improved No evidence of cellulitis in left leg and no ulceration 2 healed ulcerated area over the hooks-dry no evidence of any discharge Neuro-alert, awake and oriented 3 No focal neuro deficit appreciated Lab data as noted below. ASSESSMENT & PLAN: This is a 67 year old male with a past medical history of DM2, HTN, HLD, depression/anxiety, paroxysmal atrial fibrillation on long-term anticoagulation , hypothyroidism - presents with nausea and shortness of breath Likely Chronic Atrial Fibrillation with RVR - patient with a hx. of atrial fibrillation, presented with rapid ventricular response - initially started on a Cardizem drip; now back on metoprolol tartrate -Continue Pradaxa for now and adjust as needed for any procedure - appreciate cardiology input -Clinically a lot better, denies any symptoms -Waiting for cardiac cath-tomorrow Newly Diagnosed Critically Severe Aortic Stenosis -Containing strict intake output - EF of around 50-55% - will need outpatient aortic valve work-up; likely surgical repair at tertiary care center -We will go for cardiac cath in a day or 2, preop evaluation for possible aortic valve replacement -Cardiac cath on 11/07/17 Acute Diastolic Heart Failure Decompensated diastolic heart failure in setting of rapid atrial fibrillation and severe aortic stenosis Receiving IV Lasix initially with good results Leg swelling is much better We will continue the same for now Has been diuresing quite well Peripheral Vascular Disease LLE Wound Ulcerations - arterial disease noted; L peroneal artery stenosis - Dr. Rolon consulted for vascular management - once optimized, can d/c home - changed IV abx. to Doxycycline - ID consulted for further input, antibiotic for 14 days in total -Restarted doxycycline and to continue 14 days of antibiotic and total -Left leg wound is much better Mild Ileus - spoke with GI, this likely does not represent ileus, though read as such on CT - will give clears, stop IVFs, and advance diet as tolerated -No acute issue-moving bowels normally DM2 - ha1c of 8.9%, not well controlled - currently on 4 oral agents as outpatient - will stop oral agents and insulin sliding scale with Lantus - appreciate glycemic control consultation Hypothyroidism - continue Synthroid DVT ppx - Pradaxa FULL CODE Cardiac cath tomorrow and further recommendation following that Vital Signs: Date Time Temp Pulse Resp B/P (MAP) Pulse Ox O2 Delivery O2 Flow Rate FiO2 11/06/17 11:06 37.1 79 20 114/70 (85) 98 Room Air 11/06/17 08:00 97 Room Air 11/06/17 06:55 36.7 78 18 114/76 (89) 97 Room Air 11/06/17 03:49 36.9 76 21 113/51 (71) 98 Room Air 11/06/17 00:02 Room Air 11/05/17 23:33 36.6 79 21 126/79 (95) 98 Room Air 11/05/17 19:30 36.9 86 20 116/73 (87) 97 Room Air Lab Results: Results Past 24 Hours Test 11/05/17 16:05 11/05/17 20:12 11/06/17 06:54 11/06/17 08:39 Range/Units Bedside Glucose 122 131 135 70-99 mg/dl Sodium Level 137 136-145 mmol/L Potassium Level 4.1 3.5-5.1 mmol/L Chloride Level 103 98-107 mmol/L Carbon Dioxide Level 24 21-32 mmol/L Anion Gap 9.0 3-11 mmol/L Blood Urea Nitrogen 19 7-18 mg/dl Creatinine 0.89 0.60-1.40 mg/dl Est Creatinine Clear Calc Drug Dose 100.3 ml/min Estimated GFR () 101.8 Estimated GFR (Non- 87.9 BUN/Creatinine Ratio 20.7 10-20 Random Glucose 211 70-99 mg/dl Calcium Level 9.3 8.5-10.1 mg/dl Test 11/06/17 11:16 Range/Units Bedside Glucose 136 70-99 mg/dl
[2017-11-06] MEDS: CALCIUM CARBONATE 500 MG CHEWABLE PO PRN (23:16)
[2017-11-07] VITALS (18 sets, daily range): BP systolic 100–137; BP diastolic 67–90; PULSE 67–93; TEMP 36.5–36.8; O2SAT 95–99
[2017-11-07] MEDS: LEVOTHYROXINE 50 MCG TAB PO SCH (06:22)
[2017-11-07] MEDS: INSULIN ASPART 100 UNITS/ML 3 ML PEN SQ SCH ×4 (07:00→20:37)
[2017-11-07 07:08] LABS: CALCIUM 9.4 mg/dl (8.5-10.1); CREATININE 0.82 mg/dl (0.60-1.40)
[2017-11-07] MEDS: INSULIN GLARGINE SOLOSTAR 100 UNITS/ML 3 ML PEN SC SCH ×2 (08:13→20:58)
[2017-11-07] MEDS: BuPROPion SR 150 MG TABCR PO SCH ×2 (08:14→20:56)
[2017-11-07] MEDS: GEMFIBROZIL 600 MG TAB PO SCH ×2 (08:14→20:54)
[2017-11-07] MEDS: METOPROLOL TARTRATE 25 MG TAB PO SCH ×2 (08:14→20:55)
[2017-11-07] MEDS: ALLOPURINOL 100 MG TAB PO SCH (08:14)
[2017-11-07] MEDS: DOXYCYCLINE HYCLATE 100 MG CAP PO SCH ×2 (08:14→20:56)
[2017-11-07] MEDS: SPIRONOLACTONE 25 MG TAB PO SCH (08:14)
--- NOTE | 2017-11-07 10:51 | Progress Note ---
Internal Med Progress Note Date of Service: Nov 07, 2017. Provider Documentation: SUBJECTIVE: The patient was seen and examined in telemetry unit He has significant medical history including atrial fibrillation and severe aortic stenosis He was admitted with them left leg cellulitis with CHF and severe aortic stenosis Feels a lot better and denies any symptoms Leg swelling has improved a lot He is waiting for cardiac cath 11/05: Denies any symptoms today except some increased irritation involving the catheter clinically a lot better With much improved leg swelling Left leg wound is better with minimal drainage but no cellulitis 11/06 No acute symptoms Leg swelling is much better Wound is looking better to Awaiting cardiac cath tomorrow 11/07: Going for cardiac cath this morning Denies any symptoms and no arrhythmia noted in monitors OBJECTIVE: Vital Signs-as noted below Exam: General-no apparent distress Eyes-normal ENT-normal Neck-supple Lungs-clear to auscultate bilaterally with minimal crackles at the bases Heart-irregular, soft aortic sound, difficult to feel for any murmur Abdomen-benign, soft, nontender Extremities-chronic skin changes with chronic edema bilaterally-edema is much improved No evidence of cellulitis in left leg and no ulceration 2 healed ulcerated area over the hooks-dry no evidence of any discharge Neuro-alert, awake and oriented 3 No focal neuro deficit appreciated Lab data as noted below. ASSESSMENT & PLAN: This is a 67 year old male with a past medical history of DM2, HTN, HLD, depression/anxiety, paroxysmal atrial fibrillation on long-term anticoagulation , hypothyroidism - presents with nausea and shortness of breath Likely Chronic Atrial Fibrillation with RVR - patient with a hx. of atrial fibrillation, presented with rapid ventricular response - initially started on a Cardizem drip; now back on metoprolol tartrate -Continue Pradaxa for now and adjust as needed for any procedure - appreciate cardiology input -Clinically a lot better, denies any symptoms -Cardiac cath today and depending on the findings further management plan will be determined Newly Diagnosed Critically Severe Aortic Stenosis -Containing strict intake output - EF of around 50-55% - will need outpatient aortic valve work-up; likely surgical repair at tertiary care center -We will go for cardiac cath in a day or 2, preop evaluation for possible aortic valve replacement -Cardiac cath on 11/07/17 --Likely to go to [place] for aortic valve surgery after the cardiac cath Acute Diastolic Heart Failure Decompensated diastolic heart failure in setting of rapid atrial fibrillation and severe aortic stenosis Receiving IV Lasix initially with good results Leg swelling is much better We will continue the same for now Has been diuresing quite well Denies any symptoms suggestive of any fluid overload Peripheral Vascular Disease LLE Wound Ulcerations - arterial disease noted; L peroneal artery stenosis - Dr. Rolon consulted for vascular management - once optimized, can d/c home - changed IV abx. to Doxycycline - ID consulted for further input, antibiotic for 14 days in total -Restarted doxycycline and to continue 14 days of antibiotic and total -Left leg wound is much better Mild Ileus - spoke with GI, this likely does not represent ileus, though read as such on CT - will give clears, stop IVFs, and advance diet as tolerated -No acute issue-moving bowels normally DM2 - ha1c of 8.9%, not well controlled - currently on 4 oral agents as outpatient - will stop oral agents and insulin sliding scale with Lantus - appreciate glycemic control consultation Hypothyroidism - continue Synthroid DVT ppx - Pradaxa FULL CODE Cardiac cath tomorrow and further recommendation following that Vital Signs: Date Time Temp Pulse Resp B/P (MAP) Pulse Ox O2 Delivery O2 Flow Rate FiO2 11/07/17 08:00 Room Air 11/07/17 06:56 36.5 77 20 126/80 (95) 98 Room Air 11/07/17 03:02 36.6 76 18 109/75 (86) 97 Room Air 11/07/17 00:30 Room Air 11/07/17 00:16 36.5 73 18 129/80 (96) 99 Room Air 11/06/17 20:34 36.7 68 18 134/84 (101) 98 Room Air 11/06/17 16:00 93 Room Air 11/06/17 15:50 36.7 78 18 100/62 (75) 93 Room Air 11/06/17 11:06 37.1 79 20 114/70 (85) 98 Room Air Lab Results: Results Past 24 Hours Test 11/06/17 11:16 11/06/17 16:16 11/06/17 20:23 11/07/17 06:12 Range/Units Bedside Glucose 136 108 129 70-99 mg/dl Sodium Level 138 136-145 mmol/L Potassium Level 4.0 3.5-5.1 mmol/L Chloride Level 105 98-107 mmol/L Carbon Dioxide Level 26 21-32 mmol/L Anion Gap 7.0 3-11 mmol/L Blood Urea Nitrogen 18 7-18 mg/dl Creatinine 0.82 0.60-1.40 mg/dl Est Creatinine Clear Calc Drug Dose 108.8 ml/min Estimated GFR () 105.3 Estimated GFR (Non- 90.9 BUN/Creatinine Ratio 22.0 10-20 Random Glucose 133 70-99 mg/dl Calcium Level 9.4 8.5-10.1 mg/dl Test 11/07/17 07:20 Range/Units Bedside Glucose 145 70-99 mg/dl
[2017-11-07] MEDS ORDERED: MIDAZOLAM HCL 1 MG/ML 2ML VIAL ONE (11:24)
[2017-11-07] MEDS ORDERED: NiCARDipine HCL INJ 2.5 MG/ML 10 ML AMP ONE (11:24)
[2017-11-07] MEDS ORDERED: HEPARIN SOD (PORCINE) 1000 UNIT/ML 10 ML VIAL ONE (11:24)
[2017-11-07] MEDS ORDERED: NITROGLYCERIN/D5W 100MCG/ML 20ML SYR ONE (11:24)
[2017-11-07] MEDS ORDERED: FENTANYL CITRATE INJ 50 MCG/1 ML 2 ML VIAL ONE (11:24)
--- NOTE | 2017-11-07 12:19 | Pre Sedation Assessment ---
Pre Sedation Assessment General Date of Sedation: Nov 07, 2017. Vital Signs Past 12 Hours Date Time Temp Pulse Resp B/P (MAP) Pulse Ox O2 Delivery O2 Flow Rate FiO2 11/07/17 12:10 77 18 123/83 (96) 98 Room Air 11/07/17 10:56 36.7 67 19 128/87 (101) 96 Room Air 11/07/17 08:00 Room Air 11/07/17 06:56 36.5 77 20 126/80 (95) 98 Room Air 11/07/17 03:02 36.6 76 18 109/75 (86) 97 Room Air 11/07/17 00:30 Room Air Review Cardiovascular: + systolic murmur, + irregularly irregular Lungs: lungs clear Pre-Sedation Airway Assessment Smoking Status: Former Smoker Hx of Sleep Apnea: No Thyro-mental Distance: > 3 Finger Breadths Oral Cavity: Dentures Mallampati Classification: Class II ASA Classification: Class II NPO Status Date of Last Intake of Fluids: Nov 06, 2017 Date of Last Intake of Solids: Nov 06, 2017 Procedure Planning Contraindications for Sedation: None Current Medications Reviewed: Yes Notes The planned sedation has been discussed with the patient. Informed Consent was obtained. I have identified the patient, determined the appropriateness of sedation and have assessed the patient immediately prior to the procedure. All medicine(s) and interventions are by my order.
--- NOTE | 2017-11-07 12:19 | Post Sedation Assessment ---
Post Sedation Assessment General Date of Sedation Nov 07, 2017. Vital Signs: Vital Signs Past 12 Hours Date Time Temp Pulse Resp B/P (MAP) Pulse Ox O2 Delivery O2 Flow Rate FiO2 11/07/17 12:10 77 18 123/83 (96) 98 Room Air 11/07/17 10:56 36.7 67 19 128/87 (101) 96 Room Air 11/07/17 08:00 Room Air 11/07/17 06:56 36.5 77 20 126/80 (95) 98 Room Air 11/07/17 03:02 36.6 76 18 109/75 (86) 97 Room Air 11/07/17 00:30 Room Air Post Procedure Recovery Score Activity: (2) Moves 4 extremities * Respiration: (2) Deep breath/cough Circulation: (2) +/-20% PreAnes Value Consciousness: (2) Fully Awake Oxygen Saturation: (2) > 92% On Room Air Post Anesthesia Score: 10 Discharge Sedation Level of Care: Fast Track Phase II Post Sedation Plan On clinical assessment, the patient appears to have tolerated the sedation without complications. Patient is recovering as anticipated. Patient will continue to be monitored by nursing and may be discharged when sedation discharge criteria are met per below protocol. Upon Completions of procedure and additional 15 minutes continue every 5 minute vital signs and the P.A.R. score; then discharge to a Phase I or Fast Track to Phase II per the following guidelines: * Discharge Patient to appropriate Phase II area if PAR is 8 or greater or return to pre- procedure baseline. The post - procedure orders will be as directed. * If PAR score is less than 8 or not return to pre-procedure baseline then patient will follow Phase I monitoring till PAR is reached for Phase II. The Phase I may be done in procedure room or may call to secure a Phase I area. * If naloxone or flumazenil are used for reversal, hold in Phase I for an additional 60 -120 minutes before discharge to Phase II. Please call the Sedation Physician to re-evaluate and complete post-note for discharge to Phase II area. Do NOT discharge from procedure sedation or Phase 1 until post- sedation evaluation note is complete by procedure /sedation MD Sedation Discharge Instructions to be given to the patient at discharge to home.
--- NOTE | 2017-11-07 12:29 | Cardiac Catheterization ---
Procedure Note Procedure Date Nov 07, 2017. Pre-Procedure Diagnosis Valvular Disease, CHF AUC Score 8 Post-Procedure Diagnosis Moderate CAD Procedure(s) Performed Coronary Angiography Sales And [employer] Officer Dr. Feldman Chemical Dependency Nurse(s) Harsh LANDERS Estimated Blood Loss 5cc Medication(s) Fentanyl, Versed, Lidocaine 1% Summary of Findings Moderate non-obstructive CAD Hemodynamics Rest Ao: 114/87/68 Final Ao: 113/82/72 LV: N/A Recommendations valve replacement Specimens None Radiation Exposure (mGy) 1106 Contrast (mls) 50 Anesthesia Moderate Sedation. Start 1139. End 1213. Procedural Complication(s) None Disposition PCU ACC Data Cardiac Status Clinical evaluation leading to the procedure CAD Presntation: Unstable angina Heart Failure: NYHA Class: CCS III Cardiogenic Shock w/in 24Hrs: No Cardiac Arrest w/in 24Hrs: No Imaging studies past 6 months: Yes Stress studies past 6 months: No Coronary Anatomy Dominant: Right Left Main (% Stenosis): Normal LAD (% Stenosis): Mid (40% followed by 50%) D1 (% Stenosis): Normal D2 (% Stenosis): Normal Circumflex (% Stenosis): Mid (20-30% at bifurcation of OM and Lcx) OM1 (% Stenosis): Mid (10%) RCA (% Stenosis): Proximal (10%), Mid (10%), Distal (10%) R PDA (% Stenosis): Normal R PL1 (% Stenosis): Normal Diagnostic Status: Elective Closure Device Percutaneous Entry Location: Femoral Closure Device: Mynx Recommendations: valve replacement Intraprocedure Events Significant Dissection: No Perforation: No
[2017-11-07] MEDS ORDERED: ACETAMINOPHEN 325 MG TAB PO PRN (12:30)
[2017-11-07] MEDS ORDERED: ONDANSETRON INJ 2 MG/ML 2 ML VIAL IV PRN (12:30)
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
[2017-11-07] MEDS: CALCIUM CARBONATE 500 MG CHEWABLE PO PRN (22:30)
== END 2017-11-07 23:50 | disposition short-term general hospital (02) | DRG 286 ==
LOC: EDBD 14:19 → C.EDA 14:20 → C.2T 17:31 → ENRESERV 17:40
PROVIDERS: ADMIT Internal Medicine; ATTEND Internal Medicine
PROC: B2111ZZ Fluoroscopy of Multiple Coronary Arteries using Low Osmolar Contrast (ICD-10-PCS; principal; 2017-11-07 11:28)
DX: I35.0 Nonrheumatic aortic (valve) stenosis (principal); I50.31 Acute diastolic (congestive) heart failure; I24.8 Other forms of acute ischemic heart disease; K56.7 Ileus, unspecified; I11.0 Hypertensive heart disease with heart failure; I48.0 Paroxysmal atrial fibrillation; L03.116 Cellulitis of left lower limb; I48.2 Chronic atrial fibrillation; I25.10 Atherosclerotic heart disease of native coronary artery without angina pectoris; I70.242 Atherosclerosis of native arteries of left leg with ulceration of calf; I70.232 Atherosclerosis of native arteries of right leg with ulceration of calf; Z79.01 Long term (current) use of anticoagulants; E11.65 Type 2 diabetes mellitus with hyperglycemia; Z87.891 Personal history of nicotine dependence; E03.9 Hypothyroidism, unspecified